=== PATIENT | female | born 1975 | race African-American/Black ===

== ENCOUNTER 2025-06-29 11:49 | Outpatient (AMB) | payer MEDICAID, SELFPAY ==
--- NOTE | 2025-06-29 12:05 | MHC.OFFVIS ---
Vital Signs 06/29/25 12:23 BP 138/92 H Position Sitting Pulse 74 Intake Visit Reasons: follow up Allergies No Known Allergies Allergy (Verified 06/29/25 12:09) Medication List - Last Reconciled 06/29/25 by Tabitha Ordonez CNP acetaminophen-codeine 300-30 mg 1 tab PO Q6H PRN amitriptyline 75 mg PO QPM atorvastatin 80 mg PO DAILY buspirone 30 mg PO BID cetirizine 10 mg PO DAILY clonidine HCl 0.3 mg PO TID PRN empagliflozin (Jardiance) 25 mg PO QAM eplerenone mg PO famotidine 20 mg PO BID gabapentin 300 mg PO ibuprofen 800 mg PO Q8H PRN insulin degludec (Tresiba FlexTouch U-200 insulin) 100 units subcut BEDTIME levetiracetam 1,000 mg PO BID 90 days levetiracetam 250 mg PO BID levothyroxine 75 mcg PO DAILY losartan 100 mg PO DAILY metoclopramide HCl 10 mg PO QID olanzapine 10 mg PO DAILY prazosin 10 mg PO BID rizatriptan 10 mg PO DAILY PRN tirzepatide (Mounjaro) mg subcut trazodone 150 - 300 mg PO BEDTIME PRN venlafaxine ER 75 mg PO QAM venlafaxine ER mg PO HPI Comments Details: 49-year-old RH woman with epilepsy vs non epileptic spells. She suffered from obesity, HTN, PTSD, with a diagnosis of pseudotumor cerebri s/p shunting procedure in 2000, who stated that she was having episodes when she would lose time a little bit. She could get frozen, and she could become unaware of things going on around her. She would urinate when this happened, like she would lose control of her body. Her EEGs have not revealed any epileptic tendency. She believed that treatment with Keppra helped her and she was not having these episodes as often as before. She did not have any spells for about 5 months, but started was having spells about 1x/week for the last 2 months. She ran out of levetiracetam for about 4 days a month or so ago, but denies any missed doses recently. Her last spell was 2 days ago. She went to get a drink when she saw white, and dropped drink, and then fell. Her mother heard her fall and found her twitching. It may have lasted about 2 minutes. No tongue bite. She was incontinent of urine and was tired after. She was also having more headaches the last few months. It was throbbing-type pain primarily to top of head, worse with light and noise. She was taking Tylenol 3-4x/day for last few months. [facility] Medical History (Updated 06/29/25 @ 12:26 by Tabitha Ordonez CNP) IIH (idiopathic intracranial hypertension) PTSD (post-traumatic stress disorder) Hypertension Review of Systems Const Denies chills, Denies daytime sleepiness, Reports difficulty sleeping, Denies fatigue, Denies fever(s), Denies frequent falls, Reports headache(s), Denies increased appetite, Denies poor appetite, Denies snoring, Denies weakness, Denies weight gain and Denies weight loss Eyes Denies loss of vision ENT Denies vertigo, Reports dizziness and Reports headache(s) Card Denies chest pain at rest, Denies chest pain with activity, Denies syncope, Denies leg edema and Denies palpitations Resp Denies snoring GI Denies constipation, Denies heartburn, Denies diarrhea and Denies nausea Denies urinary frequency, Denies urinary incontinence and Denies urinary urgency Musc Denies abnormal gait, Denies numbness and Denies tingling Skin/Breast Denies dry skin and Denies rash Neuro Denies abnormal gait, Denies vertigo, Reports dizziness, Denies syncope, Denies frequent falls, Reports headache(s), Denies lack of coordination, Denies loss of vision, Denies memory loss, Denies numbness, Denies restless legs, Denies seizure-like activity, Denies tingling, Denies paresthesias, Denies tremor(s) and Denies weakness Psych Denies anxiety, Denies depression, Denies auditory hallucinations, Denies memory loss, Denies visual hallucinations and Denies suicidal ideation Endo Denies fatigue and Denies palpitations Physical Exam Const Other: General Appearance:? normal, in no acute distress. Skin:? no rashes, no significant birthmarks. Heart:? S1, S2 normal, no murmurs. Lungs:? clear anteriorly and posteriorly. Extremities:? no edema. Psych:? alert, oriented, cognitive function intact, cooperative with exam. Neuro Other: Mental Status:?Normal attention, orientation, and flat affect.? Cranial Nerves:?Pupils are equal, round and reactive to light. External occular muscles are intact. Visual covarrubias are full. Face is symmetrical. Facial sensations are normal. Tongue is midline. Palate elevates symmetrically. Shoulder shrugging is normal. Hearing to bedside conversation is normal. Sensory Exam:?....? Coordination:?No ataxia,?no titubation.? Gait Exam: Within normal limits. Cerebellar Signs:?[id number] is okay. Extrapyramidal System:?No tremor, rigidity with normal facial expressions.? Pronator Drift:?Not present.? Involuntary Movements:?No tremors seen.? Speech:?Normal.? Results Reviewed Results Reviewed: EEG at off in Oct 2024: questionable abnormality of left hemisphere the most of the EEG was unremarkable EEG at off in Oct 2021: WNL CT brain WO at [facility] in Sep 2021: OK, s/p shunting Amb EEG [facility] in Oct 2020: OK Routine EEG at office in Sep 2020: WNL EEG at [facility] in Sep 2018: WNL MRI brain at [facility] in Oct 2017: s/p PROFESSOR OF ASTRONOMY shunt, a few non specific WM hyperintensities Assessment & Plan Assessment & Plan (1) Seizure disorder: Code(s): G40.909 - Epilepsy, unspecified, not intractable, without status epilepticus Category: Medical Plan: Continue levetiracetam 1000mg 1 tablet twice a day. Increase levetiracetam 500mg 1 tablet twice a day. She was educated on the importance of medication compliance and risk associated with missed doses, including seizures. (2) Migraine: Code(s): G43.909 - Migraine, unspecified, not intractable, without status migrainosus Category: Medical Qualifiers: Migraine type: unspecified Status migrainosus presence: without status migrainosus Intractability: not intractable Qualified Code(s): G43.909 - Migraine, unspecified, not intractable, without status migrainosus Plan: Continue rizatriptan 10mg 1 tablet as needed for migraine. (3) Medication overuse headache: Code(s): G44.40 - Drug-induced headache, not elsewhere classified, not intractable Category: Medical Plan: She was educated on this condition. She was advised to stop Tylenol (and other OTC analgesics) completely. Plan Meds tried: sumatriptan Medications: New levetiracetam 500 mg PO BID 180 tabs 1RF 90 days Coding Level of Care Code Est Pt Level 4 (41781) Diagnoses Seizure disorder G40.909 Migraine without status migrainosus, not intractable, unspecified migraine type G43.909 Migraine type: unspecified Status migrainosus presence: without status migrainosus Intractability: not intractable Medication overuse headache G44.40
[2025-06-29 12:23] VITALS: BP 138/92; PULSE 74
--- OUTSIDE RECORDS SUMMARY | 2025-06-29 14:31 | XMS_ITS | Encounter Summary ---
Author Organization [facility], Address [address] [place] [address] Phone Care Team Providers Care Correctional Guard Name Role Phone Lashawn Cloud MD Primary Care Provider + Reason for Visit * Reason Comments Med Refill Encounter Details Date Type Department Care Team (Late st Contact Info) Description 08/28/2020 Refill [facility] [address] [place] [id number] Navid Nolasco MD [address] [place] [address] [place] [address] Social History Tobacco Use Types Packs/Day Years Used Date Smoking Tobacco: Never Comments Unknown Sex and Gender Information Value Date Recorded Sex Assigned at Not on file Legal Sex Female 4:34 PM EST Gender Identity Not on file Sexual Orientation Not on file documented as of this encounter Plan of Treatment Upcoming Encounters Date Type Department Care Team (Late st Contact Info) Description 07/08/2025 9:10 AM EDT Office Visit [facility], [address] [place] [address] Isaias Randall MD [address] [place] [address] [place] [address] documented as of this encounter Visit Diagnoses Not on filedocumented in this encounter Care Teams Correctional Guard Relationship Specialty Start Date End Date Lashawn Cloud MD PCP - General 03/19/23 documented as of this encounter
--- OUTSIDE RECORDS SUMMARY | 2025-06-29 14:31 | XMS_ITS | Encounter Summary ---
Author Organization [facility] Address [address] [place] [address] Phone Care Team Providers Care Medicare Coordinator Name Role Phone Lashawn Cloud MD Primary Care Provider + Encounter Details Date Type Department Care Team (Late st Contact Info) Description 01/16/2025 Documentation Only [facility] [address] [place] [address] [place] [address] [place] [phone] Social History Tobacco Use Types Packs/Day Years Used Date Smoking Tobacco: Never Alcohol Use Standard Drinks/Week Comments No 0 (1 standard drink = 0.6 oz pur e alcohol) Comments Unknown Sex and Gender Information Value Date Recorded Sex Assigned at Not on file Legal Sex Female 4:34 PM EST Gender Identity Not on file Sexual Orientation Not on file documented as of this encounter Plan of Treatment Upcoming Encounters Date Type Department Care Team (Late st Contact Info) Description 07/08/2025 9:10 AM EDT Office Visit [facility] [address] [place] [address] Isaias Randall MD [address] [place] [address] documented as of this encounter Visit Diagnoses Not on filedocumented in this encounter Care Teams Medicare Coordinator Relationship Specialty Start Date End Date Lashawn Cloud MD PCP - General 03/19/23 documented as of this encounter
--- OUTSIDE RECORDS SUMMARY | 2025-06-29 14:31 | XMS_ITS | Clinical Summary ---
Author Organization 175 [facility] Address [address] [place] [address] Phone Care Team Providers Care Sleeve Tailor Name Role Phone Lashawn Montesinos MD Primary Care Prov ider Allergies Active Allergy Reactions Criticality Noted Date Comments Amlodipine Besylate Cough Medium 07/22/2013 Lisinopril Cough Medium 06/05/2013 Coughing/bleeding Amlodipine Cough Medium 11/04/2024 Other Other Medium 08/20/2024 INSPRA 07/22/2013 21 - OTHER Hematuria - brand name only that causes this, generic is ok Spironolactone Other Medium 03/11/2022 Medications blood-glucose meter kit 1 Device by Does not apply route 2 times daily. Use to test blood sugar BID dx e11.9. 024 Active insulin syringe-needle U-100 0.3 mL 30 gauge x 10/09 syringe 023 Active nut.tx.gluc intol,lf,soy/fi stevie (BOOST GLUCOSE CONTROL ORAL) Take 1 Bottle by mouth daily for 30 days. 024 Active lancets 33 gauge misc 023 Active amitriptyline (ELAVIL) 150 mg tablet Take 0.5 Tablets by mouth. 020 Active ammonium lactate (LAC-HYDRIN) 12 % lotion APPLY TO SOLES OF FEET DAILY. AT NIGHT WEAR SOCKS TO BED 024 Active aspirin 81 mg EC tablet Take 81 mg by mouth daily. Active cloNIDine (CATAPRES) 0.3 mg tablet Take 1 tablet (0.3 mg total) by mouth 3 (three) times a day. Active fluoride, sodium, (Denta 5000 Plus) 1.1 % cream USE 2-3X/DAILY, SPIT OUT EXCESS DO NOT RINSE WITH WATER. NO EATING OR DRINKING FOR 45 MIN AFTER. Active fluticasone propionate (FLONASE) 50 mcg/actuation nasal spray [place] 1 puff into nostrils twice a day 2024 Active levETIRAcetam (KEPPRA) 250 mg tablet Take 1 tablet (250 mg total) by mouth 2 (two) times a day. Take with the 1,000 MG for a daily total of 1025 MG daily. Active levETIRAcetam (KEPPRA) 1,000 mg tablet Take 1 tablet (1,000 mg total) by mouth 2 (two) times a day. Active OLANZapine (ZyPREXA) 10 mg tablet Take 3 tablets (30 mg total) by mouth at bedtime. Active polyethylene glycol (MIRALAX) 17 gram packet Active prazosin (MINIPRESS) 5 mg capsule Take 2 capsules (10 mg total) by mouth 2 (two) times a day. Active traZODone (DESYREL) 150 mg tablet Take 150 mg by mouth at bedtime. Active venlafaxine XR (EFFEXOR-XR) 150 mg 24 hr capsule TAKE 1 CAPSULE BY MOUTH ONCE A DAY TAKE WITH 75 MG CAPSULE FOR TOTAL DOSE = 225 MG. Active venlafaxine XR (EFFEXOR-XR) 75 mg 24 hr capsule TAKE 1 CAPSULE BY MOUTH EVERY MORNING TAKE WITH 150 MG CAPSULE FOR TOTAL DOSE = 225 MG. Active ziprasidone (GEODON) 80 mg capsule Take 80 mg by mouth 2 times daily (with meals). Prescribed by Dr. Isaias Sheridan Active zolpidem (AMBIEN) 5 mg tablet Take by mouth at bedtime as needed. Active albuterol HFA (Ventolin HFA) 90 mcg/actuation inhaler Inhale 2 Puffs into the lungs every 4 hours as needed for Cough or Wheezing. Active atorvastatin (LIPITOR) 80 mg tablet Take 1 tablet (80 mg total) by mouth 1 (one) time each day. 90 each 3 025 2025 Active eplerenone (INSPRA) 50 mg tablet Take 2 tablets (100 mg total) by mouth 2 (two) times a day. Active benztropine (COGENTIN) 0.5 mg tablet Take 1 tablet (0.5 mg total) by mouth 2 (two) times a day. Active rizatriptan (MAXALT) 10 mg tablet Take 1 tablet (10 mg total) by mouth if needed. Active busPIRone (BUSPAR) 5 mg tablet Take 1 tablet (5 mg total) by mouth 3 (three) times a day. Active Lubricant Eye Drops 0.5 % ophthalmic solution Administer 1 drop into both eyes 2 (two) times a day. Active KLOR-CON 20 mEq CR tablet Take 1 tablet (20 mEq total) by mouth 1 (one) time each day. Active potassium citrate (UROCIT-K) 10 mEq (1,080 mg) CR tabletIndicatio ns:Hyperaldoste ronism, unspecified (CMS/HCC V24) TAKE 2 TABLETS BY MOUTH TWICE A DAY 360 tablet Active bisacodyL (DULCOLAX) 5 mg EC tablet Take 2 tablets by mouth right before beginning bowel prep. See instructions provided by the office 2 tablet Active glucose blood test strip Use to test blood sugar 3 times daily. 300 each 3 Active insulin aspart (NovoLOG Flexpen U-100 Insulin) 100 unit/mL (3 mL) injection pen Inject 30 Units into the skin 3 times daily (before meals). Please dispense 90 day supply 45 mL 11 Active blood sugar diagnostic (FreeStyle Lite Strips) test strip Use to check BS 3 times a day 100 each 12 025 2025 Active glucagon (Gvoke HypoPen 2-Pack) 0.5 mg/0.1 mL auto-injector Inject 0.5 mg under the skin if needed (low blood sugar). 0.5 each 5 Active losartan (COZAAR) 100 mg tablet TAKE 1 TABLET BY MOUTH 1 TIME EACH DAY. 90 tablet 1 Active insulin degludec (Tresiba FlexTouch U-200) 200 unit/mL (3 mL) CONCENTRATED injection pen INJECT 100 UNITS INTO THE SKIN AT BEDTIME. PLEASE DISPENSE 90 DAY SUPPLY 45 Pen 1 Active folic acid (FOLVITE) 1 mg tablet TAKE 1 TABLET BY MOUTH EVERY DAY 90 tablet 1 Active dilTIAZem CD (CARDIZEM CD) 360 mg 24 hr capsule Take 1 capsule (360 mg total) by mouth 1 (one) time each day. 30 each 025 2025 Active empagliflozin (Jardiance) 25 mg tablet Take 1 tablet (25 mg total) by mouth 1 (one) time each day in the morning. 90 tablet Active labetaloL (NORMODYNE) 200 mg tablet Take 2 tablets (400 mg total) by mouth 2 (two) times a day. 360 each 025 2025 Active levothyroxine (SYNTHROID, LEVOTHROID) 75 mcg tabletIndicatio ns:Hypothyroidi sm, unspecified type Take 1 tablet (75 mcg total) by mouth 1 (one) time each day. 90 each Active gabapentin (NEURONTIN) 300 mg capsule Take 1 capsule (300 mg total) by mouth 2 (two) times a day. 180 each 025 2024 Active cyclobenzaprine (FLEXERIL) 5 mg tabletIndicatio ns:Acute right-sided low back pain without sciatica Take 1 tablet (5 mg total) by mouth 3 (three) times a day if needed for muscle spasms for up to 20 doses. 20 tablet 025 Active blood-glucose sensor (Dexcom G7 Sensor) deviceIndicatio ns:Type 2 diabetes mellitus without complication, without long-term current use of insulin ([facility] V24, [facility] V28) Change sensor every 10 days 3 each 11 Active BD Ultra-Fine Short Pen Needle 31 gauge x 5/16 needle USE DIRECTED FOUR TIMES DAILY 400 each 025 Active cetirizine (ZyrTEC) 10 mg tablet TAKE 1 TABLET BY MOUTH EVERY DAY 90 tablet 1 Active tirzepatide (Mounjaro) 10 mg/0.5 mL injection INJECT 1 PEN UNDER THE SKIN EVERY 7 (SEVEN) DAYS FOR 28 DAYS. 2 mL 2 Active linaCLOtide (Linzess) 290 mcg capsule Take 1 capsule (290 mcg total) by mouth 1 (one) time each day before breakfast. 90 each 3 025 2025 Active pantoprazole (PROTONIX) 40 mg EC tablet Take 1 tablet (40 mg total) by mouth 1 (one) time each day before breakfast. Do not crush, chew, or split. 90 each 3 025 2025 Active famotidine (PEPCID) 20 mg tablet Take 1 tablet (20 mg total) by mouth 2 (two) times a day. 180 each 3 025 2025 Active metoclopramide (REGLAN) 10 mg tablet Take 1 tablet (10 mg total) by mouth 4 (four) times a day (before meals and nightly). 120 each 1 025 2024 Active linaCLOtide (Linzess) 290 mcg capsule Take 1 Capsule by mouth daily. Take in a.m. 024 2024 Discontinued(R eorder) sucralfate (CARAFATE) 1 gram tablet Take 1 Tablet by mouth 4 times daily. 024 2024 Discontinued famotidine (PEPCID) 20 mg tablet Take 1 tablet (20 mg total) by mouth 2 (two) times a day. 180 tablet 1 024 2024 Discontinued(R eorder) cetirizine (ZyrTEC) 10 mg tablet TAKE 1 TABLET BY MOUTH EVERY DAY 90 tablet 1 025 2024 Discontinued metoclopramide (REGLAN) 10 mg tablet Take 1 tablet (10 mg total) by mouth 4 (four) times a day (before meals and nightly). 120 each 3 025 2024 Discontinued(R eorder) pantoprazole (PROTONIX) 40 mg EC tablet TAKE 1 TABLET BY MOUTH EVERY DAY BEFORE BREAKFAST DO NOT CRUSH CHEW OR SPLIT 90 tablet 1 025 2024 Discontinued(R eorder) tirzepatide (Mounjaro) 10 mg/0.5 mL injection Inject 0.5 mL (10 mg total) under the skin every 7 (seven) days for 28 days. 2 mL 025 2024 Discontinued Active Problems Problem Noted Date Diagnosed Date Adrenal hyperplasia ([facility] V24) 08/20/2024 Constipation 08/20/2024 Esophageal dysmotility 08/20/2024 Hiatal hernia 08/20/2024 Primary aldosteronism ([facility] V24) 08/20/2024 Overview (08/20/2024): betsy goodman Hypothyroid 08/20/2024 Assessment & Plan (03/30/2025 7:58 PM EDT): Assessment & Plan (01/22/2025 5:16 PM EDT): Patient currently on levothyroxine 75 mcg daily. Stable TSH. Continue same dose Assessment & Plan (09/24/2024 8:04 AM EST): Patient currently on levothyroxine 75 mcg daily. Stable TSH. Continue same dose Orders: Ambulatory referral to Endocrinology; Future Lipid panel with reflex to direct LDL; Future Hemoglobin A1c; Future LENNIE (iron deficiency anemia) 08/20/2024 Class 3 severe obesity due t o excess calories with body mass index (BMI) of 50.0 to 59.9 in adult ([facility] V24, [facility] V28) 08/20/2024 Uterine leiomyoma 03/05/2024 Abnormal EKG 05/09/2022 Acute respiratory failure wi th hypoxia ([facility] V24, [facility] V28) 05/09/2022 Hypomagnesemia 05/09/2022 Palpitations 05/09/2022 SBO (small bowel obstruction) ([facility] V24, [facility] V28) 05/09/2022 Tremor 05/09/2022 Urinary incontinence 02/20/2022 Abnormal breast biopsy 12/02/2021 Overview (08/20/2024): Intraductal papilloma with florid epithelial hyperplasia, surgical consultation to evaluate for excision advised. [facility] center nurse navigator notified to facilitate. Seizure disorder ([facility] V24, [facility] V28) 02/2022 Type 2 diabetes mellitus ([facility] V24, [facility] V 28) 09/25/2018 Assessment & Plan (03/30/2025 7:58 PM EDT): Assessment & Plan (01/22/2025 5:16 PM EDT): Good control of diabetes. A1c 6.2. Patient will continue with yearly Podiatric and Ophthomologic evaluations.Will continue Angiotensin Converting Enzyme Inhibitor for renal protection. Continue Jardiance, insulin and Ozempic prescribed by weight management. We will check a hemoglobin A1c, before next visit. Patient will follow up in 6 months Orders: Hemoglobin A1c; Future Comprehensive metabolic panel; Future Lipid panel with reflex to direct LDL; Future Assessment & Plan (09/24/2024 8:04 AM EST): Good control of diabetes. Patient will continue with yearly Podiatric and Ophthomologic evaluations.Will continue Angiotensin Converting Enzyme Inhibitor for renal protection. Continue Jardiance, insulin and Ozempic prescribed by weight management. We will check a hemoglobin A1c, before next visit. Patient will follow up in 4 months Orders: Ambulatory referral to Endocrinology; Future Lipid panel with reflex to direct LDL; Future Hemoglobin A1c; Future Depression with anxiety 09/27/2017 PTSD (post-traumatic stress disorder) 09/27/2017 Left-sided weakness 08/24/2017 Overview (08/20/2024): Admitted [facility] 08/11/2017, occlusion left middle cerebral artery, symptoms felt to be possibly functional Gout 07/22/2013 Hyperaldosteronism ([facility] V24) 07/22/2013 Migraine headache 07/22/2013 Multinodular goiter 07/22/2013 PCOS (polycystic ovarian syndrome) 07/22/2013 Overview (08/20/2024): Irregular periods Pseudotumor cerebri 07/22/2013 Overview (08/20/2024): Shunt 2001 HTN (hypertension) 06/05/2013 Overview (08/20/2024): Last Assessment & Plan: Patient with history of hypertension. She also has history of primary aldosteronism. She follows closely with renal, Dr. Goodman. They have been managing her hypertension for quite some time. She is on an extensive regimen including diltiazem 360 mg orally daily, metoprolol succinate 100 mg orally twice daily, prazosin 5 mg orally twice daily, eplerenone 100 mg orally twice daily, clonidine 0.3 mg orally twice daily. Her blood pressure is noted to be 160/98 today however she just took her medication 30 to 45 minutes ago. At this time, she will continue on her current medication regimen and continue to follow-up with nephrology. Assessment & Plan (03/30/2025 7:58 PM EDT): Assessment & Plan (01/22/2025 5:16 PM EDT): The patient's antihypertensive regimen is based on their underlying medical issues. At the time of this visit, the blood pressure is well controlled. Will continue losartan, labetalol, prazosin, clonidine as recommended by cardiology. Her dose of labetalol was increased to 400 mg twice daily. The patient is instructed to follow a low sodium diet and to follow up in 6 months Assessment & Plan (09/24/2024 8:04 AM EST): The patient's antihypertensive regimen is based on their underlying medical issues. At the time of this visit, the blood pressure is fairly well controlled. Will continue losartan, labetalol, prazosin, clonidine as recommended by cardiology. The patient is instructed to follow a low sodium diet and to follow up in 4 months Orders: Ambulatory referral to Endocrinology; Future Lipid panel with reflex to direct LDL; Future Hemoglobin A1c; Future Hypercholesteremia 06/05/2013 Assessment & Plan (03/30/2025 7:58 PM EDT): Assessment & Plan (01/22/2025 5:16 PM EDT): Given the patients cardiac risk profile, the patient requires an LDL cholesterol of less than 70. I have instructed the patient on the principles of a low cholesterol diet and the importance of regular exercise. We will continue atorvastatin. Assessment & Plan (09/26/2024 9:19 AM EST): Given the patients cardiac risk profile, the patient requires an LDL cholesterol of less than 70. I have instructed the patient on the principles of a low cholesterol diet and the importance of regular exercise. We will continue atorvastatin and recheck levels before her next visit. If still elevated, will adjust the regimen. Orders: Ambulatory referral to Endocrinology; Future Lipid panel with reflex to direct LDL; Future Hemoglobin A1c; Future Encounters Date Type Department Care Team Description 06/18/2025 11:00 AM EDT Office Visit Gastroenterology - [place] 175 [facility] 175 [facility] [address] [place] [address] Jaycee Bryan NP Chronic constipation (Primary Dx); Chronic GERD without esophagitis; Delayed gastric emptying 06/16/2025 Telephone Adult Medicine [address] [phone] Chery Chavez MA 06/10/2025 1:06 PM EDT - 06/10/2025 3:12 PM EDT Emergency [facility] Emergency [address] [place] [phone] Fahad Ward MD Weakness (Primary Dx) Discharge Disposition: Home or Self Care 06/10/2025 Telephone Adult Medicine [address] [phone] Chery Chavez [place] 05/07/2025 Telephone Adult Medicine [address] [phone] Lashawn Montesinos MD 04/30/2025 Telephone Endocrinology - [address] [phone] Vahid Kemp MD 04/30/2025 Telephone Bariatric Surgery - [place] [address] [facility] [address] [place] [phone] Brody Mart MD 04/29/2025 11:00 AM EDT Office Visit [address] [phone] Vahid Kemp MD Type 2 diabetes mellitus without complication, without long-term current use of insulin ([facility] V24, [facility] V28) (Primary Dx) 04/07/2025 Telephone Adult Medicine [address] [phone] Chery Chavez MA 04/07/2025 Telephone Adult Medicine [address] [phone] Chery Chavez MA 03/30/2025 9:36 AM EDT - 03/30/2025 11:59 PM EDT Hospital Encounter XRAY [address] [phone] Acute right-sided low back pain without sciatica Discharge Disposition: Home or Self Care 03/30/2025 9:00 AM EDT Office Visit Adult Medicine [address] [phone] Lashawn Montesinos MD Type 2 diabetes mellitus without complication, without long-term current use of insulin ([facility] V24, [facility] V28) (Primary Dx); Primary hypertension; Hypercholesteremia; Hypothyroidism, unspecified type; Acute right-sided low back pain without sciatica; Left hemiparesis (CMS/HCC V24, CMS/HCC V28) from Last 3 Months Immunizations Name Administration Dates Next Due Pneumococcal conjugate 20 va lent (Prevnar 20, PCV 20) 2mo and older 10/12/2022 Pneumococcal polysaccharide 23 valent (Pneumovax 23) 2yo and older 08/13/2017 Tdap Tetanus diptheria acell ular pertussis (Boostrix; Adacel) 7yo and older 06/11/2019 Surgical History Surgery Date Site/Laterality Comments OTHER SURGICAL HISTORY PROCEDURE: ---- OTHER ----; COMMENT: [employer] shunt, 2000, 2001 OTHER SURGICAL HISTORY PROCEDURE: ---- OTHER ----; COMMENT: l ankle surgery MULTIPLE TOOTH EXTRACTIONS PROCEDURE: HISTORICAL DENTAL EXTRACTION OTHER SURGICAL HISTORY PROCEDURE: HISTORICAL EAR SURGERY; COMMENT: tubes HYSTERECTOMY PROCEDURE: CA VAGINAL HYSTERECTOMY UTERUS 250 GM/<; COMMENT: still has ovaries Medical History Medical History Date Comments HTN (hypertension) 06/05/2013 DX:HTN (hyper tension) Hypercholesteremia 06/05/2013 DX:Hyperchole steremia LENNIE (iron deficiency anemia) DX: LENNIE (iron deficiency anemia) Adrenal hyperplasia ([facility] V24) DX:Adrenal hyperplasia (HCC) Primary aldosteronism ([facility] V24) DX:Primary aldosteronism (HCC); COMMENT: betsy goodman Hypothyroid DX:Hypothyroid Esophageal dysmotility DX:Esopha geal dysmotility Hiatal hernia DX:Hiatal hernia Constipation DX:Constipation Anxiety state DX:Anxiety state Depressive disorder DX:Depressiv e disorder Diabetes mellitus type 2, co ntrolled, with complications ([facility] V24, [facility] V28) DX:Diabetes mellitus type 2, controlled, with complications ([facility]) GERD (gastroesophageal reflux disease) DX:GERD (gastroesophageal reflux disease) Gastroparesis DX:Gastroparesis Esophageal dysmotility DX:Esopha geal dysmotility Gastroparesis DX:Gastroparesis Occult blood in stools DX:Occult blood in stools Encounter for diagnostic col onoscopy due to change in bowel habits DX:Encounter for diagnostic colonoscopy due to change in bowel habits CVA (cerebral vascular accid ent) ([facility] V24, [facility] V28) Seizures ([facility] V24, [facility] V28) Family History Medical History Relation Name Comments Prostate cancer Father Diabetes Mother Hyperlipidemia Mother thyroidectomy Hypertension Mother Breast cancer Other mat aunt dx 50s 50s Relation Name Status Comments Father Alive Mother Alive Other mat aunt dx 50s Alive Social History Tobacco Use Types Packs/Day Years Used Date Smoking Tobacco: Never Smokeless Tobacco: Never Tobacco Cessation:Counseling Given: Not Answered Alcohol Use Standard Drinks/Week Comments Not Currently 0 (1 standard drink = 0.6 oz pur e alcohol) Housing Instability Answer Date Recorde d Are you worried that in the next 2 months you may not have stable housing? No 01/22/2025 Food Access & Nutrition Answer Date Rec orded Do you have access to a vari ety of food including fruits and vegetables? Yes 01/22/2025 Health Literacy Answer Date Recorded How often do you need to hav e someone help you when you read instructions, pamphlets, or other written material from your doctor or pharmacy? Never 01/22/2025 Caregiver: How often do you need to have someone help you when you read instructions, pamphlets, or other written material from your doctor or pharmacy? Not on file 01/22/2025 Financial Risk Answer Date Recorded How hard is it for you to pa y for the very basics like food, housing, medical care, and air conditioning / heating? Not very hard 01/22/2025 Transportation Answer Date Recorded Has the lack of transportati on kept you from meetings, work, or from getting things needed for daily living? No Has the lack of transportati on kept you from medical appointments or from getting medications? No 01/22/2025 Social Isolation Answer Date Recorded How often do you feel lonely or isolated from th ose around you? Never 01/22/2025 Food Risk Answer Date Recorded Within the past 12 months we worried whether our food would run out before we got money to buy more. Never true 01/22/2025 Within the past 12 months th e food we bought just didn't last and we didn't have money to get more. Never true 01/22/2025 Dependent Care Answer Date Recorded Do you need help finding or paying for care for your loved ones. For example, child neurologist or elderly care for an older adult? No 01/22/2025 Education Answer Date Recorded Do you think completing more education or training, like finishing a GED, going to college, or learning a trade, would be helpful for you? No 01/22/2025 Employment and Income Answer Date Recor ded During the last four weeks, have you been actively looking for work? No 01/22/2025 Living Situation Answer Date Recorded What is your living situation? 0 01/22/2025 Interpersonal Safety Answer Date Record ed Physical Abuse 11/17/2024 Verbal Abuse 11/17/2024 Comments No Sex and Gender Information Value Date Recorded Sex Assigned at Female 11/11/2024 9:32 AM EST Legal Sex Female 4:00 PM EST Gender Identity Female 11/11/2024 9:32 AM EST Sexual Orientation Straight 11/11/2024 9: 32 AM EST Obstetrics History Para Term AB IAB SAB Ectopic Multiple Livin g Live Births 1 Last Filed Vital Signs Vital Sign Reading Time Taken Comments Blood Pressure 126/90 06/18/2025 10:37 AM EDT Pulse 83 06/18/2025 10:37 AM EDT Temperature 36.4 C (97.5 F) 06/10/2025 11:50 AM EDT Respiratory Rate 16 06/10/2025 2:00 PM EDT Oxygen Saturation 98% 06/18/2025 10:37 AM EDT Inhaled Oxygen Concentration - - Weight 132 kg (291 lb) 06/18/2025 10:37 AM EDT Height 160 cm (5' 3 ) 06/18/2025 10:37 AM EDT Body Mass Index 51.55 06/18/2025 10:37 AM EDT Plan of Treatment Upcoming Encounters Date Type Department Care Team (Late st Contact Info) Description 07/01/2025 10:45 AM EDT Office Visit Orthopedic Surgery [facility] [address] [phone] Zach Tarango, SHIRA [address] [address] 07/01/2025 2:00 PM EDT [facility]ointment [facility] [address] [phone] 07/02/2025 11:15 AM EDT Office Visit Endocrinology - [address] [phone] Vahid Kemp MD [address] [place] [address] 07/07/2025 1:00 PM EDT Office Visit Bariatric Surgery - [place] [address] [phone] Brody Mart MD [address] [place] [phone] 07/30/2025 11:30 AM EDT Office Visit Adult Medicine [facility] [address] [place], [place] [phone] Kina Peter PA [address] [place], [place] 06/17/2026 10:00 AM EDT Office Visit Gastroenterology - [place] [address] [place] [phone] Jaycee Bryan NP 175 [facility] [place] [address] [place] [address] Health Maintenance Due Date Last Done Comments Diabetes: Annual Retina Eye Exam 1987 Hepatitis B Vaccines (1 of 3 - 19+ 3-dose series) 1996 Medicare Annual Wellness Visit 12/12/2023 12/11/2022 Diabetes: Annual Foot Exam 03/05/2025 03/05/2024 Diabetes: Blood Sugar Control Test (HGBA1C) 04/06/2025 10/07/2024, 06/16/2024, 06/16/2024, Additional history exists COVID-19 Vaccine ( season) 2025 Influenza Vaccine (#1) 2025 Social Influencers of Health Screening 01/22/2026 01/22/2025 Diabetes: Annual Urine Albumin-Creatinine Ratio (uACR) 03/12/2026 03/12/2025, 06/16/2024 Diabetes: Annual GFR (Glomerular Filtration Rate) 06/10/2026 06/10/2025, 01/14/2025, 06/16/2024, Additional history exists Hypertension/CHF/CAD Annual BMP Blood Test 06/10/2026 06/10/2025, 01/14/2025, 06/16/2024, Additional history exists Breast Cancer Screening 12/23/2026 12/24/19 25, 06/02/2024, 09/16/2020, Additional history exists DTaP,Tdap,and Td Vaccines (2 - Td or Tdap) 06/11/2029 06/11/2019 Cholesterol Screening (Lipid Panel) 10/07/2029 10/07/2024, 06/16/2024, 06/16/2024 Colorectal Cancer Screening: Colonoscopy 11/17/2034 11/17/2024, 11/12/2024 RSV Immunization Adult Patients (1 - 1-dose 75+ series) 2052 HIV Screening Completed 11/07/2019 Hepatitis C Screening Completed 11/07/2019 Pneumococcal Vaccine: Pediatrics (0 to 5 Years) and At-Risk Patients (6 to 49 Years) Completed 10/12/2022, 08/13/2017 Depression Screening Completed 02/11/2025, 03/05/20 24 HIB Vaccines Aged Out No longer eligi ble based on patient's age to complete this topic HPV Vaccines Aged Out No longer eligi ble based on patient's age to complete this topic Hepatitis A Vaccines Aged Out No long er eligible based on patient's age to complete this topic IPV Vaccines Aged Out No longer eligi ble based on patient's age to complete this topic MMR Vaccines Aged Out No longer eligi ble based on patient's age to complete this topic Meningococcal ACWY Vaccine Aged Out N o longer eligible based on patient's age to complete this topic Meningococcal B Vaccine Aged Out No l onger eligible based on patient's age to complete this topic RSV Immunization Patients Under 20 months Aged Out No longer eligible based on patient's age to complete this topic Varicella Vaccines Aged Out No longer eligible based on patient's age to complete this topic Procedures Procedure Name Priority Date/Time Associated Diagnosis Comments CT HEAD WO CONTRAST STAT 06/10/2025 1 :57 PM EDT CBC WITH AUTO DIFFERENTIAL STAT 06/10/2025 1:31 PM EDT COMPREHENSIVE METABOLIC PANEL STAT 06/10/2025 1:31 PM EDT CBC AND DIFFERENTIAL STAT 06/10/2025 1:31 PM EDT XR LUMBAR SPINE 4+ VIEWS Routine 03/30/2025 9:51 AM EDT Acute right-sided low back pain without sciatica MICROALBUMIN CREATININE URINE RATIO Routine 03/12/2025 3:24 PM EDT Type 2 diabetes mellitus without complication, without long-term current use of insulin (CMS/HCC V24, CMS/HCC V28) MG MAMMO DIGITAL DIAGNOSTIC W GARY LEFT Routine 12/23/2024 11:41 AM EDT Screening mammogram for breast cancer COLONOSCOPY Routine 11/17/2024 4:06 PM EST Blood in stool HEMOGLOBIN A1C Routine 10/07/2024 12:26 PM EST Type 2 diabetes mellitus without complication, without long-term current use of insulin (CMS/HCC V24, CMS/HCC V28) Primary hypertension Hypercholesteremia Hypothyroidism, unspecified type LIPID PANEL WITH REFLEX TO DIRECT LDL Routine 10/07/2024 12:26 PM EST Type 2 diabetes mellitus without complication, without long-term current use of insulin (CMS/HCC V24, CMS/HCC V28) Primary hypertension Hypercholesteremia Hypothyroidism, unspecified type DEPRESSION SCREENING Routine 03/05/2024 DIABETES FOOT EXAM Routine 03/05/2024 HEPATITIS C SCREENING Routine 11/07/2019 HIV SCREENING Routine 11/07/2019 from Last 3 Months or Most Recently Relevant to Health Maintenance Results * CT Head wo Contrast (06/10/2025 1:57 PM EDT) Anatomical Region Laterality Modality Head and Neck Computed Tomogra phy 06/10/2025 2:10 PM EDT Impressions 06/10/2025 2:11 PM EDT NO ACUTE INTRACRANIAL ABNORMALITY. -------- FINAL REPORT -------- Dictated By: Sirisha Kruse Dictated Date: 06/10/2025 14:10 ET Assigned Physician: Sirisha Kruse Reviewed and Electronically Signed By: Sirisha Kruse Signed Date: 06/10/2025 14:11 ET Workstation ID: [id number] Transcribed By: Self Edit Transcribed Date: 06/10/2025 14:10 ET Narrative 06/10/2025 2:11 PM EDT PROCEDURE: HEAD CT INDICATION: left sided weakness x 1 month TECHNIQUE: CT of the head without intravenous contrast. Multiplanar reformats. The examination was performed utilizing dose reduction techniques. Total DLP 809 COMPARISON: No priors available. FINDINGS: No acute territorial infarct, mass effect, or intracranial hemorrhage. No significant white matter disease Right frontal approach ventriculostomy shunt catheter terminating in the left lateral ventricle. No hydrocephalus. Trace thickening involving ethmoid air cells and left sphenoid sinus. Mastoid air cells are clear. No calvarial fracture. Procedure Note Sirisha Kruse MD - 06/10/2025 PROCEDURE: HEAD CT INDICATION: left sided weakness x 1 month TECHNIQUE: CT of the head without intravenous contrast. Multiplanarreformats. The examination was performed utilizing dose reductiontechniques. Total DLP 809 COMPARISON: No priors available. FINDINGS: No acute territorial infarct, mass effect, or intracranial hemorrhage. No significant white matter disease Right frontal approach ventriculostomy shunt catheter terminating in theleft lateral ventricle. No hydrocephalus. Trace thickening involving ethmoid air cells and left sphenoid sinus.Mastoid air cells are clear. No calvarial fracture. IMPRESSION: NO ACUTE INTRACRANIAL ABNORMALITY. -------- FINAL REPORT -------- Dictated By: Sirisha Kruse Dictated Date: 06/10/2025 14:10 ET Assigned Physician: Sirisha Kruse Reviewed and Electronically Signed By: Sirisha Kruse Signed Date: 06/10/2025 14:11 ET Workstation ID: [id number] Transcribed By: Self Edit Transcribed Date: 06/10/2025 14:10 ET Fahad Ward MD IM CT PROCEDURES Final Result * (ABNORMAL) CBC auto differential (06/10/2025 1:31 PM EDT) WBC 8.4 4.8 - 10.8 K/mcL LAB HEMETOLOGY METHOD 06/10/2025 2:04 PM [facility] RBC 5.00(H) 3.80 - 4.80 M/mcL LAB HEMETOLOGY METHOD 06/10/2025 2:04 PM [facility] Hemoglobin 13.5 11.5 - 16.0 g/dL LAB HEMETOLOGY METHOD 06/10/2025 2:04 PM [facility] Hematocrit 41.9 35.0 - 47.0 % LAB HEMETOLOGY METHOD 06/10/2025 2:04 PM [facility] MCV 84.0 79.0 - 98.0 FL LAB HEMETOLOGY METHOD 06/10/2025 2:04 PM [facility] MCH 27.1 27.0 - 32.0 pcg LAB HEMETOLOGY METHOD 06/10/2025 2:04 PM [facility] MCHC 32.2 32.0 - 37.0 g/dL LAB HEMETOLOGY METHOD 06/10/2025 2:04 PM [facility] RDW 13.4 11.0 - 15.0 % LAB HEMETOLOGY METHOD 06/10/2025 2:04 PM [facility] Platelets 285 130 - 400 K/mcL LAB HEMETOLOGY METHOD 06/10/2025 2:04 PM [facility] MPV 10.2 7.0 - 11.0 FL LAB HEMETOLOGY METHOD 06/10/2025 2:04 PM [facility] NRBC 0.0 <1.0 % LAB HEMETOLOGY METHOD 06/10/2025 2:04 PM [facility] NRBC Absolute 0.00 <0.10 K/mcL LAB HEMETOLOGY METHOD 06/10/2025 2:04 PM [facility] Neutrophils Relative 70.8 % LAB HEMETOLOGY METHOD 06/10/2025 2:04 PM [facility] Lymphocytes Relative 16.3 % LAB HEMETOLOGY METHOD 06/10/2025 2:04 PM [facility] Monocytes Relative 5.4 % LAB HEMETOLOGY METHOD 06/10/2025 2:04 PM [facility] Eosinophils Relative 6.5 % LAB HEMETOLOGY METHOD 06/10/2025 2:04 PM [facility] Basophils Relative 0.5 % LAB HEMETOLOGY METHOD 06/10/2025 2:04 PM [facility] Immature Granulocytes Relative 0.5 % LAB HEMETOLOGY METHOD 06/10/2025 2:04 PM [facility] Neutrophils Absolute 5.93 1.50 - 7.00 K/mcL LAB HEMETOLOGY METHOD 06/10/2025 2:04 PM [facility] Lymphocytes Absolute 1.36 1.00 - 5.00 K/mcL LAB HEMETOLOGY METHOD 06/10/2025 2:04 PM [facility] Monocytes Absolute 0.45 0.20 - 1.00 K/mcL LAB HEMETOLOGY METHOD 06/10/2025 2:04 PM [facility] Eosinophils Absolute 0.54(H) 0.00 - 0.50 K/mcL LAB HEMETOLOGY METHOD 06/10/2025 2:04 PM [facility] Basophils Absolute 0.04 0.00 - 0.20 K/mcL LAB HEMETOLOGY METHOD 06/10/2025 2:04 PM [facility] Immature Granulocytes Absolute 0.04(H) 0.00 - 0.03 K/mcL LAB HEMETOLOGY METHOD 06/10/2025 2:04 PM [facility] Blood Venous blood specimen / Unknown Venipuncture / Unknown 06/10/2025 1:31 PM EDT 06/10/2025 1:54 PM EDT us Fahad Ward MD LAB BLOOD ORDERABLES Final Resul t [facility] [address] [place] [address], [place] [phone] * (ABNORMAL) Comprehensive metabolic panel (06/10/2025 1:31 PM EDT) Sodium 142 133 - 145 mmol/L LAB CHEMISTRY METHOD 06/10/2025 2:50 PM EDT [facility] Potassium 3.4(L) 3.5 - 5.5 mmol/L LAB CHEMISTRY METHOD 06/10/2025 2:50 PM EDT [facility] Chloride 107 96 - 110 mmol/L LAB CHEMISTRY METHOD 06/10/2025 2:50 PM T [facility] CO2 29 21 - 32 mmol/L LAB CHEMISTRY METHOD 06/10/2025 2:50 PM T [facility] Anion Gap 6 3 - 11 LAB CHEMISTRY METHOD 06/10/2025 2:50 PM [facility] Glucose 172(H) 70 - 100 mg/dL LAB CHEMISTRY METHOD 06/10/2025 2:50 PM [facility] BUN 15 5 - 25 mg/dL LAB CHEMISTRY METHOD 06/10/2025 2:50 PM [facility] Creatinine 1.39(H) 0.50 - 1.10 mg/dL LAB CHEMISTRY METHOD 06/10/2025 2:50 PM [facility] eGFR 47(L) >=60 mL/min/1. 73m2 LAB CHEMISTRY METHOD 06/10/2025 2:50 PM T [facility] Comment:Calculation based on the Chronic Kidney Disease Epidemiology Collaboration (CKD-EPI) equation refit without adjustment for race. BUN/Creatinine Ratio 10.8 LAB CHEMISTRY METHOD 06/10/2025 2:50 PM EDT [facility] Calcium 9.9 8.5 - 10.5 mg/dL LAB CHEMISTRY METHOD 06/10/2025 2:50 PM EDT [facility] AST (SGOT) 17 10 - 42 unit/L LAB CHEMISTRY METHOD 06/10/2025 2:50 PM EDT [facility] ALT (SGPT) 23 10 - 60 unit/L LAB CHEMISTRY METHOD 06/10/2025 2:50 PM EDT [facility] Alkaline Phosphatase 117 42 - 121 unit/L LAB CHEMISTRY METHOD 06/10/2025 2:50 PM EDT [facility] Total Protein 7.6 6.0 - 8.0 g/dL LAB CHEMISTRY METHOD 06/10/2025 2:50 PM EDT [facility] Albumin 4.0 3.2 - 5.0 g/dL LAB CHEMISTRY METHOD 06/10/2025 2:50 PM EDT [facility] Total Bilirubin 0.3 0.0 - 1.4 mg/dL LAB CHEMISTRY METHOD 06/10/2025 2:50 PM EDT [facility] Blood Venous blood specimen / Unknown Venipuncture / Unknown 06/10/2025 1:31 PM EDT 06/10/2025 1:54 PM EDT Fahad Ward MD LAB BLOOD ORDERABLES Final Resul t [facility] [address] [place] [address], * XR Lumbar Spine 4+ Views (03/30/2025 9:51 AM EDT) Anatomical Region Laterality Modality Spine, L-spine Radiographic Leslie ging 03/30/2025 2:13 PM EDT Impressions 03/30/2025 2:16 PM EDT No acute fracture or dislocation. Moderate degenerative changes of the lumbar spine -------- FINAL REPORT -------- Dictated By: Lele Pascual Dictated Date: 03/30/2025 14:13 ET Assigned Physician: Lele Pascual Reviewed and Electronically Signed By: Lele Pascual Signed Date: 03/30/2025 14:16 ET Workstation ID: [id number] Transcribed By: Self Edit Transcribed Date: 03/30/2025 14:13 ET Narrative 03/30/2025 2:16 PM EDT HISTORY: back pain TECHNIQUE: 4 views of the lumbar spine COMPARISON: Lumbar spine radiograph from 09/17/2015 FINDINGS: Vertebral body height is grossly maintained. Decreased disc height at T11-T12, T12-L1 and L5-S1. No evidence of spondylolisthesis. Moderate facet arthropathy at multiple levels. There is moderate neuroforaminal stenosis at multiple levels. Sacroiliac joints are patent. A portion of a probable TUCK POINTER HELPER shunt overlies the right mid abdomen adjacent to the lumbar spine. Procedure Note Lele Pascual MD - 03/30/2025 HISTORY: back pain TECHNIQUE: 4 views of the lumbar spine COMPARISON: Lumbar spine radiograph from 09/17/2015 FINDINGS: Vertebral body height is grossly maintained. Decreased disc height ssF67-D49, T12-L1 and L5-S1. No evidence of spondylolisthesis. Moderatefacet arthropathy at multiple levels. There is moderate neuroforaminalstenosis at multiple levels. Sacroiliac joints are patent. A portion of aprobable TUCK POINTER HELPER shunt overlies the right mid abdomen adjacent to the lumbarspine. IMPRESSION: No acute fracture or dislocation. Moderate degenerative changes of thelumbar spine -------- FINAL REPORT -------- Dictated By: Lele Pascual Dictated Date: 03/30/2025 14:13 ET Assigned Physician: Lele Pascual Reviewed and Electronically Signed By: Lele Pascual Signed Date: 03/30/2025 14:16 ET Workstation ID: [id number] Transcribed By: Self Edit Transcribed Date: 03/30/2025 14:13 ET us Lashawn Montesinos MD IMG XR PROCEDURES Final Result * (ABNORMAL) Microalbumin creatinine urine ratio (03/12/2025 3:24 PM EDT) Creatinine, Urine 230.0 mg/dL LAB CHEMISTRY METHOD 03/12/2025 5:44 PM EDT [facility] Microalb, Ur 56.6(H) 0.0 - 29.0 mg/L LAB CHEMISTRY METHOD 03/12/2025 5:44 PM EDT [facility] Microalb/Crea t Ratio 25 <30 mg/g creat LAB CHEMISTRY METHOD 03/12/2025 5:44 PM EDT [facility] Urine Urine specimen obtained by clean catch procedure / Unknown Non-blood Collection / Unknown 03/12/2025 3:24 PM EDT 03/12/2025 3:24 PM EDT Vahid Kemp MD LAB URINE ORDERABLES Final Resul t [facility] [address] [place] [address], [place] [phone] * MG Mammo Digital Diagnostic w Gary Left (12/23/2024 11:41 AM EDT) Anatomical Region Laterality Modality Breast Left Mammography 12/23/2024 11:1 8 AM EDT Impressions 12/23/2024 12:57 PM EDT 1. Stable left breast calcifications. Six-month follow-up recommended. Patient is due for bilateral mammography at this time. 2. Stable oval mass in the right breast. Recommend 6 month follow-up with mammography and ultrasound. BI-RADS CATEGORY: Mammography: 3 - PROBABLY BENIGN Ultrasound: 3 - PROBABLY BENIGN RECOMMENDATIONS: Short Interval Follow-up is recommended for bilateral breasts in 6 months. Diagnostic Ultrasound in 6 Months is recommended for the Right Breast. Mammo Location: [facility], [address] [place] [address], [id number], . -------- FINAL REPORT -------- Dictated By: Tereza Anand Dictated Date: 12/23/2024 11:18 ET Assigned Physician: Tereza Anand Reviewed and Electronically Signed By: Tereza Anand Signed Date: 12/23/2024 12:57 ET Workstation ID: [id number] Transcribed By: Self Edit Transcribed Date: 12/23/2024 12:55 ET Narrative 12/23/2024 12:57 PM EDT CLINICAL: 49 years old, Female, six-month follow-up right breast mass and left breast calcifications. COMPARISON: 06/02/2024, 06/26/2024, 04/18/2023, 07/17/2022, 10/21/2021 and 09/16/2020 FINDINGS: MAMMOGRAPHY TECHNIQUE: Unilateral left MLO and CC views were obtained digitally with 3-D mammogram (digital breast tomosynthesis). CC and the ML magnification views were obtained. Computer-aided detection was utilized in evaluation of this exam (CAD). There are stable grouped calcifications in the left upper outer breast at anterior depth. Additional stable scattered calcifications throughout the left breast. Stable round mass with associated biopsy marker and Magseed from prior biopsy- proven papillary lesion. BREAST DENSITY: B - There are scattered areas of fibroglandular density. ULTRASOUND TECHNIQUE: Ultrasound survey evaluation of the right breast was performed. Targeted ultrasound of the right breast at 6 o'clock 5 cm from the nipple demonstrates a stable 1.5 cm oval circumscribed mass. us Lashawn Montesinos MD IMG BI PROCEDURES Final Result * COLONOSCOPY Anesthesia - MAC; [facility] ENDOSCOPY (11/17/2024 4:06 PM EST) Anatomical Region Laterality Modality Endoscopy 11/17/2024 3:52 PM EST Impressions 11/17/2024 4:07 PM EST - Preparation of the colon was poor. - Stool in the entire examined colon. - No specimens collected. Recommendation: - Discharge patient to home. - This is the second attemped colonoscopy aborted due to poor bowel prep. I suggest FIT test, plus barium enema to be ordered by PCP. Narrative 11/17/2024 4:07 PM EST [facility] GI Patient Name: Les Cruz Procedure Date: 11/17/2024 3:52 PM Date of : 1975 Age: 49 Gender: Female Note Status: Finalized Attending MD: Maria Elena Cardoso MD, Procedure Date No Time: 11/17/2024 Procedure: Colonoscopy Indications: Screening for colorectal malignant neoplasm Providers: Maria Elena Cardoso MD Referring MD: Lashawn alvarez MD Medicines: Monitored Anesthesia Care Complications: No immediate complications. Estimated Blood Loss: Estimated blood loss: none. Procedure: Pre-Anesthesia Assessment: - Prior to the procedure, a History and Physical was performed, and patient medications and allergies were reviewed. The patient is competent. The risks and benefits of the procedure and the sedation options and risks were discussed with the patient. All questions were answered and informed consent was obtained. Patient identification and proposed procedure were verified by the physician, the nurse, the neurology epilepsy physician and the eligibility technician in the pre-procedure area in the endoscopy suite. Mental Status Examination: alert and oriented. Airway Examination: normal oropharyngeal airway and neck mobility. Respiratory Examination: clear to auscultation. CV Examination: normal. Prophylactic Antibiotics: The patient does not require prophylactic antibiotics. Prior Anticoagulants: The patient has taken no anticoagulant or antiplatelet agents. ASA Grade Assessment: III - A patient with severe systemic disease. After reviewing the risks and benefits, the patient was deemed in satisfactory condition to undergo the procedure. The anesthesia plan was to use monitored anesthesia care (MAC). Immediately prior to administration of medications, the patient was re-assessed for adequacy to receive sedatives. The heart rate, respiratory rate, oxygen saturations, blood pressure, adequacy of pulmonary ventilation, and response to care were monitored throughout the procedure. The physical status of the patient was re-assessed after the procedure. After I obtained informed consent, the scope was passed under direct vision. Throughout the procedure, the patient's blood pressure, pulse, and oxygen saturations were monitored continuously. The Colonoscope was introduced through the anus with the intention of advancing to the cecum. The scope was advanced to the hepatic flexure before the procedure was aborted. Medications were given. The colonoscopy was performed without difficulty. The patient tolerated the procedure well. The quality of the bowel preparation was poor. Findings: The perianal and digital rectal examinations were normal. A large amount of semi-solid solid stool was found in the entire colon, precluding visualization. Procedure Code(s): --- Professional --- G0121, 53, Colorectal cancer screening; colonoscopy on individual not meeting criteria for high risk Diagnosis Code(s): --- Professional --- Z12.11, Encounter for screening for malignant neoplasm of colon CPT copyright 2020 [employer]. All rights reserved. The codes documented in this report are preliminary and upon boat hoist operator helper review may be revised to meet current compliance requirements. Maria Elena Cardoso MD 11/17/2024 4:07:55 PM This report has been signed electronically.Maria Elena Cardoso MD Number of Addenda: 0 Note Initiated On: 11/17/2024 3:52 PM Scope In: 3:58:32 PM Scope Out: 4:04:58 PM Endoscopy Department at [facility] - [address] [place] [id number] Procedure Note Maria Elena Cardoso MD - 11/17/2024 [facility] GI Patient Name: Les Cruz Procedure Date: 11/17/2024 3:52 PM Date of : 1975 Age: 49 Gender: Female Note Status: Finalized Attending MD: Maria Elena Cardoso MD, Procedure Date No Time: 11/17/2024 Procedure: Colonoscopy Indications: Screening for colorectal malignant neoplasm Providers: Maria Elena Cardoso MD Referring MD: Lashawn alvarez MD Medicines: Monitored Anesthesia Care Complications: No immediate complications. Estimated Blood Loss: Estimated blood loss: none. Procedure: Pre-Anesthesia Assessment: - Prior to the procedure, a History and Physicalwas performed, and patient medications and allergieswere reviewed. The patient is competent. The risks and benefits of the procedure and the sedation optionsand risks were discussed with the patient. Allquestions were answered and informed consent was obtained. Patient identification and proposed procedure were verified by the physician, the nurse, theanesthetist and the eligibility technician in the pre-procedure area in the endoscopy suite. Mental Status Examination: alertand oriented. Airway Examination: normal oropharyngeal airway and neck mobility. Respiratory Examination: clear to auscultation. CV Examination: normal. Prophylactic Antibiotics: The patient does notrequire prophylactic antibiotics. Prior Anticoagulants: The patient has taken no anticoagulant or antiplatelet agents. ASA Grade Assessment: III - A patient with severe systemic disease. After reviewing the risksand benefits, the patient was deemed in satisfactory condition to undergo the procedure. The anesthesia plan was to use monitored anesthesia care (MAC). Immediately prior to administration of medications, the patient was re-assessed for adequacy to receive sedatives. The heart rate, respiratory rate, oxygen saturations, blood pressure, adequacy of pulmonary ventilation, and response to care were monitored throughout the procedure. The physical status ofthe patient was re-assessed after the procedure. After I obtained informed consent, the scope was passed under direct vision. Throughout theprocedure, the patient's blood pressure, pulse, and oxygen saturations were monitored continuously. The Colonoscope was introduced through the anus withthe intention of advancing to the cecum. The scope was advanced to the hepatic flexure before theprocedure was aborted. Medications were given. Thecolonoscopy was performed without difficulty. The patient tolerated the procedure well. The quality of thebowel preparation was poor. Findings: The perianal and digital rectal examinations were normal. A large amount of semi-solid solid stool was foundin the entire colon, precluding visualization. Procedure Code(s): --- Professional --- G0121, 53, Colorectal cancer screening; colonoscopyon individual not meeting criteria for high risk Diagnosis Code(s): --- Professional --- Z12.11, Encounter for screening for malignantneoplasm of colon CPT copyright 2020 [employer]. All rights reserved. The codes documented in this report are preliminary and upon boat hoist operator helper reviewmay be revised to meet current compliance requirements. Maria Elena Cardoso MD 11/17/2024 4:07:55 PM This report has been signed electronically.Maria Elena Cardoso MD Number of Addenda: 0 Note Initiated On: 11/17/2024 3:52 PM Scope In: 3:58:32 PM Scope Out: 4:04:58 PM Endoscopy Department at [facility] - [address] [place] [phone] IMPRESSION: - Preparation of the colon was poor. - Stool in the entire examined colon. - No specimens collected. Recommendation: - Discharge patient to home. - This is the second attemped colonoscopy aborteddue to poor bowel prep. I suggest FIT test, plus barium enema to be ordered by PCP. us Maria Elena Cardoso MD GI~PROCEDURE ORDERABLES Fin al Result * (ABNORMAL) Lipid panel with reflex to direct LDL (10/07/2024 12:26 PM EST) Cholesterol 185 0 - 200 mg/dL LAB CHEMISTRY METHOD 10/07/2024 5:02 PM EST [facility] Triglycerides 132 0 - 150 mg/dL LAB CHEMISTRY METHOD 10/07/2024 5:02 PM EST [facility] HDL 49 >=40 mg/dL LAB CHEMISTRY METHOD 10/07/2024 5:02 PM [facility] LDL Calculated 110(H) 0 - 100 mg/dL LAB CHEMISTRY METHOD 10/07/2024 5:02 PM EST [facility] VLDL Cholesterol Reinier 26.4 mg/dL LAB CHEMISTRY METHOD 10/07/2024 5:02 PM EST [facility] Non HDL Chol. (LDL+VLDL) 136 <145 mg/dL LAB CHEMISTRY METHOD 10/07/2024 5:02 PM EST [facility] Chol/HDL Ratio 3.8 0.0 - 4.4 LAB CHEMISTRY METHOD 10/07/2024 5:02 PM [facility] Blood Venous blood specimen / Unknown Venipuncture / Unknown 10/07/2024 12:26 PM EST 10/07/2024 12:26 PM EST us Lashawn Montesinos MD LAB BLOOD ORDERABL ES Final Result [facility] [address] [place] [address], [place] [phone] * Hemoglobin A1c (10/07/2024 12:26 PM EST) Hemoglobin A1C 6.2 <6.5 % LAB CHEMISTRY METHOD 10/07/2024 8:06 PM EST [facility] Mean Bld Glu Estim. 131 mg/dL LAB CHEMISTRY METHOD 10/07/2024 8:06 PM EST [facility] Blood Venous blood specimen / Unknown Venipuncture / Unknown 10/07/2024 12:26 PM EST 10/07/2024 12:26 PM EST Lashawn Montesinos MD LAB BLOOD ORDERABL ES Final Result [facility] [address] [place] [address], * Depression Screening (03/05/2024) [facility] Depression Screening abstracted Historical Provider HEALTH MAINTENANCE Final Result * Diabetes Foot Exam (03/05/2024) [facility] Diabetes: Annual Foot Exam abstracted Historical Provider HEALTH MAINTENANCE Final Result * HIV Screening (11/07/2019) [facility] HIV Screening abstracted Historical Provider HEALTH MAINTENANCE Final Result * Hepatitis C Screening (11/07/2019) [facility] Hepatitis C Screening abstracted Historical Provider HEALTH MAINTENANCE Final Result from Last 3 Months or Most Recently Relevant to Health Maintenance Insurance [facility] Member Subscriber Plan / Payer (Ef fective 2022-Present) Name:LES CRUZ Relation to Subscriber:Self Name:Les Cruz Payer ID:[id number] Group ID:[id number] Type:Not on file Address: [facility] [address] [phone] Advance Directives Documents on File Type Date Recorded 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 Health Care Decision (hx) 03/12/2022 AD FUENTES DIRECTIVE Health Care Decision (hx) 03/12/2022 AD FUENTES DIRECTIVE Health Care Decision (hx) 03/12/2022 AD FUENTES DIRECTIVE Health Care Decision (hx) 03/12/2022 AD FUENTES DIRECTIVE Health Care Decision (hx) 03/12/2022 AD FUENTES DIRECTIVE Health Care Decision (hx) 03/12/2022 AD FUENTES DIRECTIVE Health Care Decision (hx) 03/12/2022 AD FUENTES DIRECTIVE Health Care Decision (hx) 03/12/2022 AD FUENTES DIRECTIVE Health Care Decision (hx) 03/12/2022 AD FUENTES DIRECTIVE Health Care Decision (hx) 03/12/2022 AD FUENTES DIRECTIVE Health Care Decision (hx) 03/12/2022 AD FUENTES DIRECTIVE Health Care Decision (hx) 03/12/2022 AD FUENTES DIRECTIVE Health Care Decision (hx) 03/12/2022 AD FUENTES DIRECTIVE Health Care Decision (hx) 03/12/2022 AD FUENTES DIRECTIVE Health Care Decision (hx) 03/12/2022 AD FUENTES DIRECTIVE Health Care Decision (hx) 03/12/2022 AD FUENTES DIRECTIVE Health Care Decision (hx) 03/12/2022 AD FUENTES DIRECTIVE Health Care Decision (hx) 03/12/2022 AD FUENTES DIRECTIVE Health Care Decision (hx) 03/12/2022 AD FUENTES DIRECTIVE Health Care Decision (hx) 03/12/2022 AD FUENTES DIRECTIVE Health Care Decision (hx) 03/12/2022 AD FUENTES DIRECTIVE Care Teams Sleeve Tailor Relationship Specialty Start Date End Date Lashawn Montesinos MD [address] [place] [phone] PCP - General Internal Medicine 06/06/22
--- OUTSIDE RECORDS SUMMARY | 2025-06-29 14:31 | XMS_ITS | Encounter Summary ---
Author Organization [facility] Address [address] [place] [address] Phone Care Team Providers Care Aircraft Structural Fitter Name Role Phone Lashawn Cloud MD Primary Care Provider + Encounter Details Date Type Department Care Team (Late st Contact Info) Description 03/15/2023 Documentation Only [facility] [address] [place] [address] Allison Hutson [address] [place] [address] Social History Tobacco Use Types Packs/Day [...] Visit [facility] [address] [place] [address] Isaias Randall MD [address] [facility] [place] [address] documented as of this encounter Visit Diagnoses Not on filedocumented in this encounter Care Teams Aircraft Structural Fitter Relationship Specialty Start Date End Date Lashawn Cloud MD PCP - General 03/19/23 documented as of this encounter
--- OUTSIDE RECORDS SUMMARY | 2025-06-29 14:31 | XMS_ITS | Encounter Summary ---
Author Organization [facility] Address [address] [place] [address] Care Team Providers Care Rag Grader Name Role Phone Lashawn Montesinos MD Primary Care Prov ider Reason for Visit * Reason Onset Date Comments Fitting for DME 06/16/2025 Encounter Details Date Type Department Care Team ([facility] st Contact Info) Description 06/16/2025 Telephone Adult Medicine [address] [phone] Chery Chavez [place] Social History Tobacco Use Types Packs/Day Years Used Date Smoking Tobacco: Never Smokeless Tobacco: Never Alcohol Use Standard Drinks/Week Comments Not Currently [...] care for your loved ones. For example, rn child or elderly care for an older adult? [...] Orientation Straight 11/11/2024 9: 32 AM EST documented as of this encounter Progress Notes * Justo Ayala MA - 06/24/2025 4:25 PM EDT Orders faxed. * Chery Chavez MA - 06/16/2025 11:48 AM EDT DME REQUEST Name of Product: Small Rollator walker and a replacement recliner the one she has is unrepairable. Specific information about product # Needed 1 of each Reason patient is asking for this supply? Current rollator is to big and recliner is broken Have you received this supply before? If yes , when?: Yes. A while ago Have you discussed the need for this supply with a provider at a recent visit? If yes, with who andwhen? No When completed: Fax to [employer] FAX#[phone] Who is requested? The patient Is this a fax request?no Have you told the patient it will take 7-10 days for completion of this request? Yes documented in this encounter Plan of Treatment Upcoming Encounters Date Type Department Care Team (Late st Contact Info) Description 07/01/2025 10:45 AM EDT Office Visit Orthopedic Surgery [facility] [address] [phone] Zach Tarango DPAravind [address] [address] 07/01/2025 2:00 PM EDT Appointment [facility] [address] [place] [phone] 07/02/2025 11:15 AM EDT Office Visit Endocrinology [address] [phone] Vahid Kemp MD [address] [place] [address] 07/07/2025 1:00 PM EDT Office Visit Bariatric Surgery [facility] 175 [facility] [address] [place] [phone] Brody Mart MD [address] [place] [phone] 07/30/2025 11:30 AM EDT Office Visit Adult Medicine [place] [address] [phone] Kina Peter PA [address] [place], [place] 06/17/2026 10:00 AM EDT Office Visit Gastroenterology - [place] 175 [facility] 175 [facility] [address] [place] [address] Jaycee Bryan, URBAN [address] [facility] [address] [place] [address] documented as of this encounter Visit Diagnoses Diagnosis Left hemiparesis (CMS/HCC V24, CMS/HCC V28)- Primary Unspecified hemiplegia affecting unspecified side documented in this encounter Orders General Supply Count Last Ordered Date First Or dered Date POWER LIFT RECLINER 1 06/24/2025 documented in this encounter Additional Health Concerns Assessment Noted Time PHQ-9 Depression Total Score: 0 02/12/20 25 10:19 AM EDT documented as of this encounter Care Teams Rag Grader Relationship Specialty Start Date End Date Lashawn Montesinos MD [address] [place], [place] PCP - General Internal Medicine 06/06/22 documented as of this encounter
--- OUTSIDE RECORDS SUMMARY | 2025-06-29 14:31 | XMS_ITS | Encounter Summary ---
Author Organization [facility] Address [address] [place] [address] Phone Care Team Providers Care Batchmaker Name Role Phone Lashawn Cloud MD Primary Care Provider + Encounter Details Date Type Department Care Team (Late st Contact Info) Description 12/05/2022 Documentation Only [facility] [address] [facility] [address] Allison Hutson [address] [place] [address] Social History Tobacco Use Types [...] Visit [facility] [address] [place] [place] [address] Isaias Randall MD [address] [facility] [place] [address] documented as of this encounter Visit Diagnoses Not on filedocumented in this encounter Care Teams Batchmaker Relationship Specialty Start Date End Date Lashawn Cloud MD PCP - General 03/19/23 documented as of this encounter
--- OUTSIDE RECORDS SUMMARY | 2025-06-29 14:31 | XMS_ITS | Encounter Summary ---
Author Organization [facility] Address [address] [place] [address] Phone Care Team Providers Care Butane Compressor Operator Name Role Phone Lashawn Cloud MD Primary Care Provider + Encounter Details Date Type Department Care Team (Late st Contact Info) Description 07/20/2023 Documentation Only [facility] [address] [place] [address] Allison Hutson [address] [place] [address] Social History Tobacco Use Types [...] Visit [facility] [address] [place] [address] Isaias Randall MD [address] [facility] [place] [address] documented as of this encounter Visit Diagnoses Not on filedocumented in this encounter Care Teams Butane Compressor Operator Relationship Specialty Start Date End Date Lashawn Cloud MD PCP - General 03/19/23 documented as of this encounter
--- OUTSIDE RECORDS SUMMARY | 2025-06-29 14:31 | XMS_ITS | Encounter Summary ---
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
--- OUTSIDE RECORDS SUMMARY | 2025-06-29 14:31 | XMS_ITS | Clinical Summary ---
Author Organization [facility], Address [address] [place] [address] [place] [address] Phone Care Team Providers Care Base Remover Name Role Phone Lashawn Cloud MD Primary Care Provider + Allergies Active Allergy Reactions Criticality Noted Date Comments Amlodipine Other (see comments) 09/23/2019 Prednisone & Diphenhydramine Other (see comments) 09/23/2019 Eplerenone Other (see comments) 09/23/2019 Ferumoxytol Other (see comments) 01/03/2018 Lisinopril Other (see comments) 09/23/2019 Spironolactone 03/11/2022 Medications levETIRAcetam (KEPPRA) 750 MG tablet Take 1 tablet (750 mg total) by mouth 2 (two) times a day 60 tablet 5 07/11/20 21 Active traZODone (DESYREL) 150 MG tablet Take 150 mg by mouth every night Active ziprasidone (GEODON) 60 MG capsule Take 60 mg by mouth every night Active prazosin (MINIPRESS) 5 MG capsule Take 5 mg by mouth 2 (two) times a day Active folic acid (FOLVITE) 1 MG tablet TAKE 1 TABLET BY MOUTH 1 TIME EACH DAY. 90 tablet 3 02/13/20 23 Active cloNIDine (CATAPRES) 0.3 MG tablet Take 1 tablet (0.3 mg total) by mouth 1 (one) time each day 180 tablet 3 12/20/19 24 Active Tresiba FlexTouch 200 UNIT/ML injection INJECT 100 UNITS SUBCUTANEOUSLY ONCE DAILY AT BEDTIME DIRECTED Active Ozempic, 2 MG/DOSE, 8 MG/3ML solution pen-injector INJECT 2 MG INTO THE SKIN ONCE A WEEK FOR 4 DOSES. 04/17/20 24 Active labetalol (NORMODYNE) 200 MG tablet Take 2 tablets (400 mg total) by mouth in the morning and 2 tablets (400 mg total) in the evening. 360 tablet 3 06/18/20 24 Active cyclobenzaprine (FLEXERIL) 10 MG tablet Take 1 tablet (10 mg total) by mouth 3 (three) times a day if needed for muscle spasms for up to 10 days 42 tablet 06/18/20 24 Active potassium citrate 10 MEQ (1080 MG) CR tablet Take 2 tablets (20 mEq total) by mouth in the morning and 2 tablets (20 mEq total) at noon and 2 tablets (20 mEq total) in the evening. Take with meals. Do not crush, chew, or split.. 180 tablet 2 08/29/20 24 Active amitriptyline (ELAVIL) 150 MG tablet TAKE 0.5 TABLETS (75 MG TOTAL) BY MOUTH 1 (ONE) TIME EACH DAY IN THE EVENING 45 tablet 3 10/30/19 25 Active gabapentin (NEURONTIN) 300 MG capsule Take 1 capsule (300 mg total) by mouth in the morning and 1 capsule (300 mg total) in the evening and 1 capsule (300 mg total) before bedtime. 90 capsule 11/07/19 25 026 Active atorvastatin (LIPITOR) 20 MG tablet TAKE 1 TABLET (20 MG TOTAL) BY MOUTH ONE TIME EACH DAY 90 tablet 3 11/27/19 25 Active levothyroxine (SYNTHROID, LEVOTHROID) 75 MCG tabletIndications :Hypothyroidism, not otherwise specified TAKE 1 TABLET (75 MCG TOTAL) BY MOUTH ONE TIME EACH DAY. 90 tablet 3 01/22/20 25 Active losartan (COZAAR) 100 MG tablet Take 1 tablet (100 mg total) by mouth 1 (one) time each day 90 tablet 3 02/26/20 25 Active dilTIAZem CD (CARDIZEM CD) 360 MG 24 hr capsuleIndication s:Primary aldosteronism (HCC) Take 1 capsule (360 mg total) by mouth 1 (one) time each day 90 capsule 05/27/20 026 Active eplerenone (INSPRA) 50 MG tabletIndications :Primary aldosteronism (HCC) Take 2 tablets (100 mg total) by mouth in the morning and 2 tablets (100 mg total) in the evening. 360 tablet 3 05/27/20 25 Active Active Problems Problem Noted Date Diagnosed Date Essential (primary) hypertension 06/02/2025 Hypo-osmolality and hyponatremia 06/18/2024 Osteoarthritis 08/21/2023 Chronic kidney disease, stage 2 (mild) Type 2 diabetes mellitus wit h diabetic chronic kidney disease 07/11/2021 Seizure 07/11/2021 Hypothyroidism 11/29/2020 Adrenal hyperplasia Overview (03/10/2020): bilateral Edema of lower extremity Hyperlipidemia Hypokalemia Iron deficiency anemia Overview (03/10/2020): severe, due to menstrual cycle Primary aldosteronism Encounters Date Type Department Care Team Description 06/16/2025 2:40 PM EDT Office Visit [facility] [address] [place] [address] Isaias Randall MD Primary aldosteronism (HCC) (Primary Dx) 06/02/2025 3:30 PM EDT Office Visit [facility] [address] [place] [address] Isaias Randall MD Essential (primary) hypertension (Primary Dx) 05/27/2025 9:20 AM EDT Office Visit [facility] [address] [place] [address] Isaias Randall MD Primary aldosteronism (HCC) (Primary Dx) from Last 3 Months Immunizations Immunization Administration Dates Next Due Pneumococcal Polysaccharide 08/13/2017 Family History Medical History Relation Comments Cancer Father prostate and col on on fathers side not father personally Colon cancer Father Heart disease Father mother not her f ather personally Prostate cancer Father Heart disease Maternal Grandfather Cancer Mother breast cervical and uterine on mothers side but not mother personally Dementia Mother father Diabetes Mother parents and sist er Gout Mother father Heart disease Mother father Hypertension Mother parents and dise ase Kidney disease Mother lupus Lupus Mother Stroke Mother father Heart disease Paternal Grandmother Diabetes Sibling Relation Status Comments Father Alive Maternal Grandfather Mother Alive Paternal Grandmother Sibling Social History Tobacco Use Types Packs/Day Years Used Date Smoking Tobacco: Never Alcohol Use Standard Drinks/Week Comments No 0 (1 standard drink = 0.6 oz pur e alcohol) Comments Unknown Sex and Gender Information Value Date Recorded Sex Assigned at Not on file Legal Sex Female 4:34 PM EST Gender Identity Not on file Sexual Orientation Not on file Last Filed Vital Signs Vital Sign Reading Time Taken Comments Blood Pressure 120/80 09/01/2019 12:01 PM EST Pulse - - Temperature - - Respiratory Rate - - Oxygen Saturation - - Inhaled Oxygen Concentration - - Weight 136 kg (300 lb) 09/01/2019 12:01 PM EST Height 165.1 cm (5' 5 ) 09/01/2019 12:01 PM EST Body Mass Index 49.92 09/01/2019 12:01 PM EST Plan of Treatment Upcoming Encounters Date Type Department Care Team (Late st Contact Info) Description 07/08/2025 9:10 AM EDT Office Visit [facility] [place], [address] [facility] [place] [phone] Isaias Randall MD [address] [facility] [place] [phone] Health Maintenance Due Date Last Done Comments Hepatitis B Vaccine (1 of 3 - 19+ 3-dose series) 1996 Pneumococcal Vaccine: Peds ( 0 to 5 Years) and At-Risk Patients (6 to 49 Years) (2 of 2 - PCV) 08/13/2018 08/13/2017 Diabetes: Ophthalmology Exam 07/12/2021 Diabetes: Pedal Pulse Checked 07/12/2021 Diabetes: Sensory Foot Exam 07/12/2021 Diabetes: Visual Foot Exam 07/12/2021 Diabetes: Hemoglobin A1C 01/05/2025 024, 06/16/2024, 12/17/2023, Additional history exists Influenza Vaccine (#1) 2025 Pneumococcal Vaccine: 50+ Years Discontinued 7 Procedures Procedure Name Priority Date/Time Associated Diagnosis Comments HEMOGLOBIN A1C Routine 07/11/2021 4:22 PM EDT Chronic kidney disease, stage 2 (mild) Adrenal hyperplasia (HCC) Edema of lower extremity Hyperlipidemia, not otherwise specified Primary aldosteronism (HCC) Prediabetes from Last 3 Months or Most Recently Relevant to Health Maintenance Results * (ABNORMAL) Hemoglobin A1c (07/11/2021 4:22 PM EDT) Hemoglobin A1C 10.4(H) (4.0-5.6) % [facility] Comment: MONITORING: In known diabetic patients, hemoglobin A1c targets should be discussed with health care provider. DIAGNOSTIC USE: The [place] Diabetes Association (ADA) and the World Health Organization (WHO) recommend the use of HbA1c to diagnose diabetes using a threshold of 6.5%. Patients who have an HbA1c between 5.7% and 6.4% are considered at increased risk for developing diabetes in the future. CAUTION: Falsely low HbA1c results may be observed in patients with hemolytic anemia, homozygous forms of abnormal hemoglobin (e.g. SS, CC, SC), , recent blood loss or hemoglobin F greater than 7%. Fructosamine may be used as an alternate test in these cases. REFERENCE: ADA: Standards of Medical Care in Diabetes 2020, The Journal of Clinical and Applied Research and Education Volume 43, Supplement 1 Testing performed or reported by [facility], a Service of [facility], [address] [place] [address] Blanca Katz MD, Janitorial Manager [facility]# [id number] Blood specimen (specimen) Venous blood / Unknown 07/11/2021 4:22 PM EDT 07/11/2021 4:29 PM EDT us Chetan Brown MD LAB BLOOD ORDERABLE S Final Result [facility] from Last 3 Months or Most Recently Relevant to Health Maintenance Insurance [employer] ([id number]) [place] [id number] Care Teams Base Remover Relationship Specialty Start Date End Date Lashawn Cloud MD PCP - General 03/19/23
--- OUTSIDE RECORDS SUMMARY | 2025-06-29 14:31 | XMS_ITS | Encounter Summary ---
Author Organization [facility] Address [address] [place] [address] Phone Care Team Providers Care Steam Box Tender Name Role Phone Lashawn Cloud MD Primary Care Provider + Encounter Details Date Type Department Care Team (Late st Contact Info) Description 05/01/2022 Documentation Only [facility] [address] [place] [address] Allison Hutson [address] [place] [address] Social History Tobacco Use Types [...] Visit [facility] [address] [place] [address] Isaias Randall MD [address] [facility] [place] [address] documented as of this encounter Visit Diagnoses Not on filedocumented in this encounter Care Teams Steam Box Tender Relationship Specialty Start Date End Date Lashawn Cloud MD PCP - General 03/19/23 documented as of this encounter
== END 2025-06-29 12:28 | disposition home or self-care (01) ==
LOC: HO.HSM 11:49
PROVIDERS: PCP Internal Medicine; Referring Provider Internal Medicine; Visit Provider Registered Nurse
DX: G40.909 Epilepsy, unspecified, not intractable, without status epilepticus (principal); G43.909 Migraine, unspecified, not intractable, without status migrainosus; G44.40 Drug-induced headache, not elsewhere classified, not intractable
CPT/HCPCS: 99214

== ENCOUNTER → 2025-06-29 11:49 | Outpatient (BNVA) | payer OTHER, SELFPAY | PROVIDERS: PCP Internal Medicine; Referring Provider Internal Medicine; Visit Provider Registered Nurse | DX: G43.909 Migraine, unspecified, not intractable, without status migrainosus (principal); G44.40 Drug-induced headache, not elsewhere classified, not intractable | CPT/HCPCS: 99212 ==

== ENCOUNTER 2025-09-28 11:12 | Outpatient (AMB) | payer MEDICAID, SELFPAY ==
--- NOTE | 2025-09-28 11:14 | MHC.OFFVIS ---
Intake Visit Reasons: 3m sz Allergies No Known Allergies Allergy (Verified 09/28/25 11:16) Medication List - Last Reconciled 09/28/25 by Tabitha Ordonez CNP acetaminophen-codeine 300-30 mg 1 tab PO Q6H PRN amitriptyline 75 mg PO QPM atorvastatin 80 mg PO DAILY buspirone 30 mg PO BID cetirizine 10 mg PO DAILY clonidine HCl 0.3 mg PO TID PRN empagliflozin (Jardiance) 25 mg PO QAM eplerenone mg PO famotidine 20 mg PO BID gabapentin 300 mg PO ibuprofen 800 mg PO Q8H PRN insulin degludec (Tresiba FlexTouch U-200 insulin) 100 units subcut BEDTIME levetiracetam 500 mg PO BID 90 days levetiracetam 1,000 mg PO BID 90 days levothyroxine 75 mcg PO DAILY losartan 100 mg PO DAILY metoclopramide HCl 10 mg PO QID olanzapine 10 mg PO DAILY prazosin 10 mg PO BID rizatriptan take 1 tab at onset of headache; if no relief may repeat 1 tab after at least 4 hrs; max = 2 tabs/24 hr PO 30 days tirzepatide (Mounjaro) mg subcut trazodone 150 - 300 mg PO BEDTIME PRN venlafaxine ER 75 mg PO QAM venlafaxine ER mg PO HPI Comments Details: 49-year-old RH woman with epilepsy vs non epileptic spells. She suffered from obesity, HTN, PTSD, with a diagnosis of pseudotumor cerebri s/p shunting procedure in 2000, who stated that she was having episodes when she would lose time a little bit. She could get frozen, and she could become unaware of things going on around her. She would urinate when this happened, like she would lose control of her body. Her EEGs have not revealed any epileptic tendency. She believed that treatment with Keppra helped her and she was not having these episodes as often as before. She went to [facility] in 08/2025. She was in the bathroom and her mother heard her talking to herself, not making sense, and then she fell. She may have passed out. Her son helped her up and sat her on the toilet. While sitting down, she passed out and hit head. Her mother was also there and says she passed out for a good 8 minutes. She was admitted to [facility] for about a week with break through seizure. She had a virus for about 3 days at this time and could not keep anything down. She had missed her seizure medications. She also apparently did not increase levetiracetam dose, and was still taking levetiracetam 1000mg twice a day and 250mg twice a day. She saw her PCP when she was discharged, and was sent back to [facility] for blood pressure. There are no records available from [facility] (or PCP) at this time. She had few small seizures where she spaces out for few seconds. Headaches were happening almost every day. She was still taking Tylenol 3-4x/day, which she has been doing for last few months. [facility] Medical History (Updated 06/29/25 @ 12:26 by Tabitha Ordonez CNP) IIH (idiopathic intracranial hypertension) PTSD (post-traumatic stress disorder) Hypertension Review of Systems Const Denies chills, Denies daytime sleepiness, Reports difficulty sleeping, Denies fatigue, Denies fever(s), Denies frequent falls, Reports headache(s), Denies increased appetite, Denies poor appetite, Denies snoring, Denies weakness, Denies weight gain and Denies weight loss Eyes Denies loss of vision ENT Denies vertigo, Reports dizziness and Reports headache(s) Card Denies chest pain at rest, Denies chest pain with activity, Denies syncope, Denies leg edema and Denies palpitations Resp Denies snoring GI Denies constipation, Denies heartburn, Denies diarrhea and Denies nausea Denies urinary frequency, Denies urinary incontinence and Denies urinary urgency Musc Denies abnormal gait, Denies numbness and Denies tingling Skin/Breast Denies dry skin and Denies rash Neuro Denies abnormal gait, Denies vertigo, Reports dizziness, Denies syncope, Denies frequent falls, Reports headache(s), Denies lack of coordination, Denies loss of vision, Denies memory loss, Denies numbness, Denies restless legs, Denies seizure-like activity, Denies tingling, Denies paresthesias, Denies tremor(s) and Denies weakness Psych Denies anxiety, Denies depression, Denies auditory hallucinations, Denies memory loss, Denies visual hallucinations and Denies suicidal ideation Endo Denies fatigue and Denies palpitations Physical Exam Const Other: General Appearance:? normal, in no acute distress. Skin:? no rashes, no significant birthmarks. Heart:? S1, S2 normal, no murmurs. Lungs:? clear anteriorly and posteriorly. Extremities:? no edema. Psych:? alert, oriented, cognitive function intact, cooperative with exam. Neuro Other: Mental Status:?Normal attention, orientation, and flat affect.? Cranial Nerves:?Pupils are equal, round and reactive to light. External occular muscles are intact. Visual covarrubias are full. Face is symmetrical. Facial sensations are normal. Tongue is midline. Palate elevates symmetrically. Shoulder shrugging is normal. Hearing to bedside conversation is normal. Sensory Exam:?....? Coordination:?No ataxia,?no titubation.? Gait Exam: With walker. Cerebellar Signs:?Lvvece-kn-alaf is okay. Extrapyramidal System:?No tremor, rigidity with normal facial expressions.? Pronator Drift:?Not present.? Involuntary Movements:?No tremors seen.? Speech:?Normal.? Results Reviewed Results Reviewed: EEG at off in Oct 2024: questionable abnormality of left hemisphere the most of the EEG was unremarkable EEG at off in Oct 2021: WNL CT brain WO at [facility] in Sep 2021: OK, s/p shunting Amb EEG [facility] in Oct 2020: OK Routine EEG at office in Sep 2020: WNL EEG at [facility] in Sep 2018: WNL MRI brain at [facility] in Oct 2017: s/p CORRECTIONAL MAINTENANCE TECHNICIAN shunt, a few non specific WM hyperintensities Assessment & Plan Assessment & Plan (1) Seizure disorder: Code(s): G40.909 - Epilepsy, unspecified, not intractable, without status epilepticus Category: Medical Plan: She did not increase levetiracetam dose as recommended at previous appointment - she was still taking levetiracetam 1000mg twice a day with 250mg twice a day (instead of 500mg twice a day). She also had viral infection with GI upset, unable to keep medications down, and had missed seizure medications for few days before episode in 08/2025. No records were available from [facility] for review at this time, will request records. She was still having few small episodes. She was advised to increase levetiracetam dose as previously recommended: Levetiracetam 1000mg 1 tablet twice a day. Levetiracetam 500mg 1 tablet twice a day (instead of 250mg twice a day) She was educated on the importance of medication compliance and risk associated with missed doses, including seizures. Follow up in 8 weeks or sooner as needed. (2) Migraine: Code(s): G43.909 - Migraine, unspecified, not intractable, without status migrainosus Category: Medical Qualifiers: Migraine type: unspecified Status migrainosus presence: without status migrainosus Intractability: not intractable Qualified Code(s): G43.909 - Migraine, unspecified, not intractable, without status migrainosus Plan: Continue rizatriptan 10mg 1 tablet as needed for migraine. (3) Medication overuse headache: Code(s): G44.40 - Drug-induced headache, not elsewhere classified, not intractable Category: Medical Plan: She was educated on this condition. She was advised to stop Tylenol (and other OTC analgesics) completely. Plan Meds tried: sumatriptan Medications: Refilled levetiracetam 500 mg PO BID 180 tabs 1RF 90 days Coding Level of Care Code Est Pt Level 4 (51758) Diagnoses Seizure disorder G40.909 Migraine without status migrainosus, not intractable, unspecified migraine type G43.909 Migraine type: unspecified Status migrainosus presence: without status migrainosus Intractability: not intractable Medication overuse headache G44.40
--- OUTSIDE RECORDS SUMMARY | 2025-09-28 14:17 | XMS_ITS | Encounter Summary ---
Author Organization [facility], Address [address] [place] [address] Phone Care Team Providers Care Director Of Group Sales Name Role Phone Lashawn Cloud MD Primary Care Provider + Encounter Details Date Type Department Care Team (Late st Contact Info) Description 04/05/2020 Orders Only 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
--- OUTSIDE RECORDS SUMMARY | 2025-09-28 14:17 | XMS_ITS | Encounter Summary ---
Author Organization [facility], Address [address] [place] [address] Phone Care Team Providers Care Hotel Controller Name Role Phone Lashawn Cloud MD Primary Care Provider + Encounter Details Date Type Department Care Team (Late st Contact Info) Description 01/16/2025 Documentation Only [facility], [address] [place] [address] [place], [place] [address] [place] [address] Social History Tobacco Use Types [...] on filedocumented in this encounter Care Teams Hotel Controller Relationship Specialty Start Date End Date Lashawn Cloud MD [address] [place] [address] PCP - General 03/19/23 documented as of this encounter
--- OUTSIDE RECORDS SUMMARY | 2025-09-28 14:17 | XMS_ITS ---
Author Name [facility] Organization Unknown Care Team Organization Name Specialty Phone Email Start Date End Da te [facility] Katy Stein Primary Care 08/15/2022 024
--- OUTSIDE RECORDS SUMMARY | 2025-09-28 14:17 | XMS_ITS | Encounter Summary ---
Author Organization [facility], Address [address] [place] [address] Phone Care Team Providers Care Laborer Chemical Processing Name Role Phone Lashawn Cloud MD Primary Care Provider + Encounter Details Date Type Department Care Team (Late st Contact Info) Description 03/15/2023 Documentation Only [facility], [address] [place] [address] Allison Hutson [address] [place] [address] Social History Tobacco Use Types [...] on filedocumented in this encounter Care Teams Laborer Chemical Processing Relationship Specialty Start Date End Date Lashawn Cloud MD [address] [place] [address] PCP - General 03/19/23 documented as of this encounter
--- OUTSIDE RECORDS SUMMARY | 2025-09-28 14:17 | XMS_ITS ---
Author Organization [facility] Address [address] [place] [address] Phone Care Team Providers Care Cork Insulator Helper Name Role Phone Lashawn Montesinos MD Primary Care Prov ider Community Health Worker Program Status:Identified (Enrolling) Start date:09/23/2025 Enrollment reason:Hypertension management Overview Community Health Worker Program Case Team Name Relationship Phone Alvarez Holt(Responsible Staff) Community Health Worker Continued Care and Services Coordination
--- OUTSIDE RECORDS SUMMARY | 2025-09-28 14:17 | XMS_ITS | Encounter Summary ---
Author Organization [facility], Address [address] [place] [address] Phone Care Team Providers Care Desolderer Name Role Phone Lashawn Cloud MD Primary Care Provider + Encounter Details Date Type Department Care Team (Late st Contact Info) Description 07/20/2023 Documentation Only [facility], [address] [place] [address] Allison Hutson [address] [place] [address] Social History Tobacco Use Types [...] on filedocumented in this encounter Care Teams Desolderer Relationship Specialty Start Date End Date Lashawn Cloud MD [address] [place] [address] PCP - General 03/19/23 documented as of this encounter
--- OUTSIDE RECORDS SUMMARY | 2025-09-28 14:17 | XMS_ITS | Encounter Summary ---
Author Organization [facility] [place], Address [address] [place] [address] Phone Care Team Providers Care Bleach Tester Name Role Phone Lashawn Cloud MD Primary Care Provider + Encounter Details Date Type Department Care Team (Late st Contact Info) Description 12/05/2022 Documentation Only [facility], [address] [place] [address] Allison Hutson [address] [place] [address] Social History Tobacco Use Types [...] on filedocumented in this encounter Care Teams Bleach Tester Relationship Specialty Start Date End Date Lashawn Cloud MD [address] [place] [address] PCP - General 03/19/23 documented as of this encounter
--- OUTSIDE RECORDS SUMMARY | 2025-09-28 14:17 | XMS_ITS | Encounter Summary ---
Author Organization [facility], Address [address] [place] [address] Phone Care Team Providers Care Home Delivery Driver Name Role Phone Lashawn Cloud MD Primary Care Provider + Encounter Details Date Type Department Care Team (Late st Contact Info) Description 08/26/2025 Documentation Only [facility], [address] [address] [place], [place] [address] [place] [address] Social History Tobacco Use Types [...] on filedocumented in this encounter Care Teams Home Delivery Driver Relationship Specialty Start Date End Date Lashawn Cloud MD [address] [place] [address] PCP - General 03/19/23 documented as of this encounter
--- OUTSIDE RECORDS SUMMARY | 2025-09-28 14:17 | XMS_ITS | Encounter Summary ---
Author Organization [facility], Address [address] [place] [address] Phone Care Team Providers Care Home Maker Name Role Phone Lashawn Cloud MD Primary Care Provider + Encounter Details Date Type Department Care Team (Late st Contact Info) Description 05/01/2022 Documentation Only [facility], [address] [place] [address] Allison Hutson [address] [place] [address] Social History Tobacco Use Types [...] filedocumented in this encounter Care Teams Home Maker Relationship Specialty Start Date End Date Lashawn Cloud MD [address] [place] [address] PCP - General 03/19/23 documented as of this encounter
--- OUTSIDE RECORDS SUMMARY | 2025-09-28 14:17 | XMS_ITS | Clinical Summary ---
Author Organization [facility], Address [address] [place] [address] [place] [address] Phone Care Team Providers Care Test And Turn Up Technician Name Role Phone Lashawn Cloud MD Primary [...] WEEK FOR 4 DOSES. 04/17/20 24 Active cyclobenzaprine (FLEXERIL) 10 MG tablet Take 1 tablet (10 mg total) by mouth 3 (three) times a day if needed for muscle spasms for up to 10 days 42 tablet 06/18/20 24 Active gabapentin (NEURONTIN) 300 MG capsule Take 1 capsule (300 mg total) by mouth in the morning and 1 capsule (300 mg total) in the evening and 1 capsule (300 mg total) before bedtime. 90 capsule 11 11/07/19 25 026 Active atorvastatin (LIPITOR) 20 MG tablet TAKE 1 TABLET (20 MG TOTAL) BY MOUTH ONE TIME EACH DAY 90 tablet 3 11/27/19 25 Active levothyroxine (SYNTHROID, LEVOTHROID) 75 MCG tabletIndication s:Hypothyroidism , not otherwise specified TAKE 1 TABLET (75 MCG TOTAL) BY MOUTH ONE TIME EACH DAY. 90 tablet 3 01/22/20 25 Active losartan (COZAAR) 100 MG tablet Take 1 tablet (100 mg total) by mouth 1 (one) time each day 90 tablet 3 02/26/20 25 Active eplerenone (INSPRA) 50 MG tabletIndication s:Primary aldosteronism (HCC) Take 2 tablets (100 mg total) by mouth in the morning and 2 tablets (100 mg total) in the evening. 360 tablet 3 05/27/20 25 Active dilTIAZem CD (CARDIZEM CD) 360 MG 24 hr capsuleIndicatio ns:Primary aldosteronism (HCC) Take 1 capsule (360 mg total) by mouth 1 (one) time each day 90 capsule 3 07/08/20 25 026 Active labetalol (NORMODYNE) 200 MG tablet Take 2 tablets (400 mg total) by mouth in the morning and 2 tablets (400 mg total) in the evening. 360 tablet 3 07/08/20 25 Active amitriptyline (ELAVIL) 150 MG tablet TAKE 0.5 TABLETS (75 MG TOTAL) BY MOUTH 1 (ONE) TIME EACH DAY IN THE EVENING 45 tablet 3 08/03/20 25 Active potassium citrate 10 MEQ (1080 MG) CR tablet Take 2 tablets (20 mEq total) by mouth in the morning and 2 tablets (20 mEq total) at noon and 2 tablets (20 mEq total) in the evening. Take with meals. Do not crush, chew, or split. 180 tablet 2 09/01/20 25 Active potassium citrate 10 MEQ (1080 MG) CR tablet Take 2 tablets (20 mEq total) by mouth in the morning and 2 tablets (20 mEq total) at noon and 2 tablets (20 mEq total) in the evening. Take with meals. Do not crush, chew, or split.. 180 tablet 2 08/29/20 24 025 Discontin ued(Reord er (does not appear on AVS)) Active Problems Problem Noted Date Diagnosed Date [...] Encounters Date Type Department Care Team Description 09/01/2025 Refill [facility] [address] [place] [address] Kirsten Estrada MA 08/26/2025 Documentation Only [facility] [address] [place] [address] Kirsten Estrada MA 08/20/2025 10:40 AM EST Office Visit [facility] [address] [place] [address] Isaias Randall MD Primary aldosteronism (HCC) (Primary Dx) 08/17/2025 Refill [facility] [address] [place] [address] Kirsten Estrada MA 08/01/2025 Refill [facility] [place], [address] [place] [address] Isaias Randall MD 07/08/2025 9:10 AM EDT Office Visit [facility] [address] [address] Isaias Randall MD Primary aldosteronism (HCC) 07/08/2025 Refill [facility] [place], [address] [address] Kirsten Estrada MA from Last 3 Months Immunizations Immunization Administration [...] 09/01/2019 12:01 PM EST Plan of Treatment Health Maintenance Due Date Last Done Comments Hepatitis B Vaccine (1 of 3 - 19+ 3-dose series) 1996 Pneumococcal Vaccine: Peds ( 0 to 5 Years) and At-Risk Patients (6 to 49 Years) (2 of 2 - PCV) 08/13/2018 08/13/2017 Diabetes: Ophthalmology Exam 07/12/2021 Diabetes: Pedal Pulse Checked 07/12/2021 Diabetes: Sensory Foot Exam 07/12/2021 Diabetes: Visual Foot Exam 07/12/2021 Influenza Vaccine (#1) 2025 Diabetes: Hemoglobin A1C 11/25/2025 025, 08/25/2025, 07/09/2025, Additional history exists Pneumococcal Vaccine: 50+ Years Discontinued 7 Procedures Procedure Name Priority Date/Time Associated Diagnosis Comments MAGNESIUM Routine 07/09/2025 10:49 AM EDT BASIC METABOLIC PANEL Routine 07/09/2025 10:49 AM EDT BASIC METABOLIC PANEL Routine 07/09/2025 10:48 AM EDT Primary aldosteronism (HCC) METANEPHRINES,FRACTI ONATED, PLASMA FREE Routine 07/09/2025 10:48 AM EDT Essential (primary) hypertension CATECHOLAMINES, FRACTIONATED, PLASMA Routine 07/09/2025 10:48 AM EDT Essential (primary) hypertension RENIN ACTIVITY Routine 07/09/2025 10:48 AM EDT Essential (primary) hypertension ALDOSTERONE Routine 07/09/2025 10:48 AM EDT Essential (primary) hypertension HEMOGLOBIN A1C Routine 07/11/2021 4:22 PM EDT Chronic kidney disease, stage 2 (mild) Adrenal hyperplasia (HCC) Edema of lower extremity Hyperlipidemia, not otherwise specified Primary aldosteronism (HCC) Prediabetes from Last 3 Months or Most Recently Relevant to Health Maintenance Results * Magnesium (07/09/2025 10:49 AM EDT) Magnesium 2.0 1.6 - 2.3 mg/dL [facility] 07/09/2025 10:4 9 AM EDT 07/09/2025 Isaias Randall MD LAB BLOOD ORDERABLES Final Re sult [facility] [address] [place] [address] * (ABNORMAL) Basic Metabolic Panel (07/09/2025 10:49 AM EDT) Only the most recent of2 resultswithin the time period is included. Glucose 72 70 - 99 mg/dL [facility] BUN 19 6 - 24 mg/dL [facility] Creatinine 1.60(H) 0.57 - 1.00 mg/dL [facility] eGFR CKD-EPI CR 2020 40(L) >59 mL/min/1.7 3 [facility] BUN/Creatinine Ratio 12 9 - 23 [facility] Sodium 142 134 - 144 mmol/L [facility] Potassium 3.6 3.5 - 5.2 mmol/L [facility] Chloride 103 96 - 106 mmol/L [facility] Bicarbonate (CO2) 22 20 - 29 mmol/L [facility] Calcium 9.9 8.7 - 10.2 mg/dL [facility] 07/09/2025 10:4 9 AM EDT 07/09/2025 Isaias Randall MD LAB BLOOD ORDERABLES Final Re sult [facility] [address] [place] [phone] * Renin Activity, Plasma (07/09/2025 10:48 AM EDT) Renin Activity 1.986 0.167 - 5.380 ng/mL/hr [facility] Blood Venous blood / Unknown 07/09/2025 10:48 AM EDT 07/09/2025 Narrative [facility] - 07/19/2025 6:05 PM EDT Test(s) 127731-Phydu Activity, Plasma was developed and its performance characteristics determined by [facility]. It has not been cleared or approved by the Food and Drug Administration. Isaias Randall MD LAB BLOOD ORDERABLES Final Re sult Performing Organization Address [facility] de Phone Number [facility] [address] [place] [address] * Metanephrines,Fractionated, Plasma Free (07/09/2025 10:48 AM EDT) Normetanephrin e, Pl 184.6 0.0 - 218.9 pg/mL [facility] Metanephrine, Plasma 46.9 0.0 - 88.0 pg/mL [facility] Blood Venous blood / Unknown 07/09/2025 10:48 AM EDT 07/09/2025 Narrative [facility] - 07/19/2025 6:05 PM EDT Test(s) 540937-Psbpuimmkyyalur, Pl; 946524-Omepgpayaqug, Pl was developed and its performance characteristics determined by [facility]. It has not been cleared or approved by the Food and Drug Administration. Isaias Randall MD LAB BLOOD ORDERABLES Final Re sult Performing Organization Address [facility] de Phone Number [facility] [address] [place] [address] * (ABNORMAL) Catecholamines, fractionated, plasma (07/09/2025 10:48 AM EDT) Norepinephrine 700(H) 115 - 524 pg/mL [facility] Epinephrine 34.9 0.0 - 55.4 pg/mL [facility] Dopamine 35.5 0.0 - 36.7 pg/mL [facility] Comment: Catecholamines, Plasma reference intervals based on patient in supine position for at least 20 minutes. Blood Venous blood / Unknown 07/09/2025 10:48 AM EDT 07/09/2025 Narrative [facility] - 07/19/2025 6:05 PM EDT Test(s) [id number]-Vuqksxsarzkpbv; [id number]-Rxoeldzdkgk; [id number]-Ghqnmrlf was developed and its performance characteristics determined by [facility]. It has not been cleared or approved by the Food and Drug Administration. Isaias Randall MD LAB BLOOD ORDERABLES Final Re sult Performing Organization Address City/[facility]/ZIP Co de Phone Number [facility] [address] [place] [phone] * (ABNORMAL) Aldosterone (07/09/2025 10:48 AM EDT) Aldosterone 122.9(H) 0.0 - 30.0 ng/dL [facility] Blood Venous blood / Unknown 07/09/2025 10:48 AM EDT 07/09/2025 Narrative [facility] - 07/19/2025 6:05 PM EDT Test(s) [id number]-Vmfkbphymrr was developed and its performance characteristics determined by [facility]. It has not been cleared or approved by the Food and Drug Administration. Isaias Randall MD LAB BLOOD ORDERABLES Final Re sult Performing Organization Address City/[facility]/ZIP Co de Phone Number [facility] [address] [place] [address] from Last [address] [place] [address] Dual SNP ([id number]) [place] [address] ([id number]) Care Teams Test And Turn Up Technician Relationship Specialty Start Date End Date Lashawn Cloud MD [address] [place] [address] PCP - General 03/19/23
--- OUTSIDE RECORDS SUMMARY | 2025-09-28 14:17 | XMS_ITS | Encounter Summary ---
Author Organization [facility] Address [address] [place] [address] Care Team Providers Care Vessel Captain Name Role Phone Lashawn Montesinos MD Primary Care Prov ider Encounter Details Date Type Department Care Team (Late st Contact Info) Description 08/26/2025 Results Follow-Up Adult Medicine [facility] [address] [place], [place] [phone] Kina Peter PA [address] [place], [place] Social History Tobacco Use Types Packs/Day [...] care for your loved ones. For example, manager child or elderly care for an older [...] Date Recorded What is your living situation? Unrecognized valu e 01/22/2025 Interpersonal Safety Answer Date Record ed Physical Abuse Unrecognized value 08/15/2025 Verbal Abuse Unrecognized value 08/15/2025 Comments No Sex and Gender Information Value Date Recorded Sex Assigned at Female 11/11/2024 9:32 AM EST Legal Sex Female 4:00 PM EST Gender Identity Female 11/11/2024 9:32 AM EST Sexual Orientation Straight 11/11/2024 9: 32 AM EST documented as of this encounter Functional Status * Are you deaf or do you have serious difficulty hearing? Answer Date of Assessment Author No 08/15/2025 6:43 PM EST Atif Nogueira RN * Are you blind or do you have serious difficulty seeing, even when wearing glasses? Answer Date of Assessment Author No 08/15/2025 6:43 PM Atif Becker RN * Do you have serious difficulty walking or climbing stairs? Answer Date of Assessment Author No 08/15/2025 6:43 PM Atif Becker RN * Do you have serious difficulty dressing or bathing? Answer Date of Assessment Author No 08/15/2025 6:43 PM Atif Becker RN * Because of a physical, mental, or emotional condition, do you have serious difficulty doing errandsalone such as visiting the doctor? Answer Date of Assessment Author No 08/15/2025 6:43 PM Atif Becker RN documented as of this encounter Mental Status * Because of a physical, mental, or emotional condition, do you have serious difficulty concentrating, remembering, or making decisions? (5 years old or older) Answer Entry Date Author No 08/15/2025 6:43 PM Atif Becker RN documented in this encounter Plan of Treatment Upcoming Encounters Date Type Department Care Team (Late st Contact Info) Description 10/26/2025 10:15 AM EST Office Visit Orthopedic Surgery [place] [address] [address] Zach Tarango, DP [address] [address] 12/17/2025 1:30 PM EDT Office Visit Bariatric Surgery [facility] [address] [facility] [address] [place] [address] Brody Mart MD [address] [place] [address] 12/21/2025 12:00 PM EDT Office Visit Adult Medicine [address] [phone] Lashawn Montesinos MD [address] [place] [address] 06/17/2026 10:00 AM EDT Office Visit Gastroenterology - [address] [address] Jaycee Bryan, URBAN [address] [address] 07/02/2026 10:30 AM EDT [facility] [address] [phone] documented as of this encounter Visit Diagnoses Not on filedocumented in this encounter Additional Health Concerns Assessment Noted Time PHQ-9 Depression Total Score: 0 02/12/20 10:19 AM EDT documented as of this encounter Care Teams Vessel Captain Relationship Specialty Start Date End Date Lashawn Montesinos MD [address] [place] [phone] PCP - General Internal Medicine 06/06/22 documented as of this encounter
--- OUTSIDE RECORDS SUMMARY | 2025-09-28 14:17 | XMS_ITS | Clinical Summary ---
Author Organization [address] [facility] Address [address] [place] [address] Phone Care Team Providers Care Customer Account Specialist Name Role Phone Lashawn Montesinos MD Primary Care Prov ider Allergies Active Allergy Reactions Criticality Noted Date Comments Amlodipine Besylate Cough Medium 07/22/2013 Lisinopril Cough Medium 06/05/2013 Coughing/bleeding Amlodipine Cough Medium 11/04/2024 Other Other Medium 08/20/2024 INSPRA 07/22/2013 21 - OTHER Hematuria - brand name only that causes this, generic is ok Spironolactone Other Medium 03/11/2022 Medications insulin syringe-needle U-100 0.3 mL 30 gauge x 1/2 syringe 04/20/20 23 Active amitriptyline (ELAVIL) 150 mg tablet Take 0.5 tablets (75 mg total) by mouth at bedtime. 03/16/20 20 Active aspirin 81 mg EC tablet Take 81 mg by mouth daily. Active cloNIDine (CATAPRES) 0.3 mg tablet Take 1 tablet (0.3 mg total) by mouth 3 (three) times a day. 12/20/19 24 Active levETIRAcetam (KEPPRA) 500 mg tablet Take 1 tablet (500 mg total) by mouth 2 (two) times a day. Take with the 1,000 MG for a daily total of 1025 MG daily. 01/14/20 24 Active levETIRAcetam (KEPPRA) 1,000 mg tablet Take 1 tablet (1,000 mg total) by mouth 2 (two) times a day. Active OLANZapine (ZyPREXA) 10 mg tablet Take 2 tablets (20 mg total) by mouth at bedtime. 03/02/20 24 Active prazosin (MINIPRESS) 5 mg capsule Take 2 capsules (10 mg total) by mouth 2 (two) times a day. Active traZODone (DESYREL) 150 mg tablet Take 150 mg by mouth at bedtime. Active venlafaxine XR (EFFEXOR-XR) 150 mg 24 hr capsule TAKE 1 CAPSULE BY MOUTH ONCE A DAY TAKE WITH 75 MG CAPSULE FOR TOTAL DOSE = 225 MG. 01/09/20 24 Active venlafaxine XR (EFFEXOR-XR) 75 mg 24 hr capsule TAKE 1 CAPSULE BY MOUTH EVERY MORNING TAKE WITH 150 MG CAPSULE FOR TOTAL DOSE = 225 MG. 01/09/20 24 Active ziprasidone (GEODON) 80 mg capsule Take 80 mg by mouth 2 times daily (with meals). Prescribed by Dr. Isaias Sheridan Active zolpidem (AMBIEN) 5 mg tablet Take 2 tablets (10 mg total) by mouth at bedtime as needed for sleep. Active benztropine (COGENTIN) 0.5 mg tablet Take 1 tablet (0.5 mg total) by mouth 2 (two) times a day. 10/12/19 25 Active rizatriptan (MAXALT) 10 mg tablet Take 1 tablet (10 mg total) by mouth if needed. 10/23/19 25 Active glucose blood test strip Use to test blood sugar 3 times daily. 300 each 3 12/10/19 25 Active folic acid (FOLVITE) 1 mg tablet TAKE 1 TABLET BY MOUTH EVERY DAY 90 tablet 1 01/10/20 25 Active dilTIAZem CD (CARDIZEM CD) 360 mg 24 hr capsule Take 1 capsule (360 mg total) by mouth 1 (one) time each day. 30 each 3 01/23/20 25 026 Active empagliflozin (Jardiance) 25 mg tablet Take 1 tablet (25 mg total) by mouth 1 (one) time each day in the morning. 90 tablet 3 01/23/20 25 Active labetaloL (NORMODYNE) 200 mg tablet Take 2 tablets (400 mg total) by mouth 2 (two) times a day. 360 each 01/23/20 25 Active gabapentin (NEURONTIN) 300 mg capsule Take 1 capsule (300 mg total) by mouth 2 (two) times a day. 180 each 03/30/20 25 Active blood-glucose sensor (Dexcom G7 Sensor) deviceIndicatio ns:Type 2 diabetes mellitus without complication, without long-term current use of insulin ([facility] V24, [facility] V28) Change sensor every 10 days 3 each 04/29/20 25 Active BD Ultra-Fine Short Pen Needle 31 gauge x 5/16 needle USE DIRECTED FOUR TIMES DAILY 400 each 05/15/20 25 Active cetirizine (ZyrTEC) 10 mg tablet TAKE 1 TABLET BY MOUTH EVERY DAY 90 tablet 06/04/20 25 Active linaCLOtide (Linzess) 290 mcg capsule Take 1 capsule (290 mcg total) by mouth 1 (one) time each day before breakfast. 90 each 06/18/20 25 026 Active pantoprazole (PROTONIX) 40 mg EC tablet Take 1 tablet (40 mg total) by mouth 1 (one) time each day before breakfast. Do not crush, chew, or split. 90 each 06/18/20 25 Active famotidine (PEPCID) 20 mg tablet Take 1 tablet (20 mg total) by mouth 2 (two) times a day. 180 each 06/18/20 25 Active atorvastatin (LIPITOR) 80 mg tablet TAKE 1 TABLET BY MOUTH 1 TIME EACH DAY. 90 tablet 07/16/20 25 Active albuterol HFA (Ventolin HFA) 90 mcg/actuation inhaler Inhale 2 puffs by mouth every 6 (six) hours if needed for wheezing. 6.7 g 07/30/20 25 Active busPIRone (BUSPAR) 30 mg tablet Take 1 tablet (30 mg total) by mouth 2 (two) times a day. Active losartan (Cozaar) 50 mg tablet Take 1 tablet (50 mg total) by mouth 1 (one) time each day. 90 tablet 08/24/20 25 026 Active levothyroxine (SYNTHROID, LEVOTHROID) 75 mcg tabletIndicatio ns:Hypothyroidi sm, unspecified type Take 1 tablet (75 mcg total) by mouth 1 (one) time each day. 90 each 1 08/26/20 25 Active Mounjaro 10 mg/0.5 mL injection 08/24/20 Active insulin aspart (NovoLOG Flexpen U-100 Insulin) 100 unit/mL (3 mL) injection pen Inject 25 Units under the skin 3 (three) times a day before meals. Inject 25 Units into the skin 3 times daily (before meals). Please dispense 90 day supply 08/31/20 25 Active insulin degludec (Tresiba FlexTouch U-200) 200 unit/mL (3 mL) CONCENTRATED injection pen Inject 90 Units under the skin at bedtime. 08/31/20 25 Active metoclopramide (REGLAN) 10 mg tablet Take 1 tablet (10 mg total) by mouth 4 (four) times a day (before meals and nightly). 360 each 3 09/28/20 25 026 Active insulin aspart (NovoLOG Flexpen U-100 Insulin) 100 unit/mL (3 mL) injection pen Inject 30 Units into the skin 3 times daily (before meals). Please dispense 90 day supply 45 mL 11 12/10/19 25 025 Discontinued(R eorder) insulin degludec (Tresiba FlexTouch U-200) 200 unit/mL (3 mL) CONCENTRATED injection pen INJECT 100 UNITS INTO THE SKIN AT BEDTIME. 45 mL 1 07/08/20 25 025 Discontinued magnesium oxide (MAG-OX) 400 mg (241.3 elemental magnesium) tablet Take 0.5 tablets (200 mg total) by mouth 2 (two) times a day for 3 days. 3 each 08/25/20 25 025 Discontinued(T herapy completed) insulin degludec (Tresiba FlexTouch U-200) 200 unit/mL (3 mL) CONCENTRATED injection pen Inject 90 Units under the skin at bedtime. INJECT 100 UNITS INTO THE SKIN AT BEDTIME. 08/31/20 25 025 Discontinued Active Problems Problem Noted Date Diagnosed Date Major depressive disorder, recurrent, moderate 1 10/24/2024 Acute on chronic renal failure 08/15/2025 Adrenal hyperplasia 08/20/2024 Constipation 08/20/2024 Esophageal dysmotility 08/20/2024 Hiatal hernia 08/20/2024 Primary aldosteronism 08/20/2024 Overview (08/20/2024): nephaj ofelia Hypothyroid 08/20/2024 Assessment & Plan (03/30/2025 7:58 [...] (BMI) of 50.0 to 59.9 in adult 08/20/2024 Uterine leiomyoma 03/05/2024 Abnormal EKG 05/09/2022 Hypomagnesemia 05/09/2022 Palpitations 05/09/2022 SBO (small bowel obstruction) 05/09/2022 Tremor 05/09/2022 Urinary incontinence 02/20/2022 Abnormal breast biopsy 12/02/2021 Overview (08/20/2024): Intraductal papilloma with florid epithelial hyperplasia, surgical consultation to evaluate for excision advised. [facility] nurse navigator notified to facilitate. Seizure disorder 10/12/2021 Type 2 diabetes mellitus 09/25/2018 Assessment & Plan (03/30/2025 7:58 PM [...] to be possibly functional Gout 07/22/2013 Hyperaldosteronism 07/22/2013 Migraine headache 07/22/2013 Multinodular goiter 07/22/2013 PCOS (polycystic ovarian syndrome) 07/22/2013 Overview (08/20/2024): Irregular periods Pseudotumor cerebri 07/22/2013 Overview (08/20/2024): Shunt 2000 HTN (hypertension) 06/05/2013 Overview (08/20/2024): Last Assessment [...] to direct LDL; Future Hemoglobin A1c; Future Resolved Problems Problem Noted Date Diagnosed Date Resolved Date Acute respiratory failure with hypoxia 05/09/2022 07/30/2025 Encounters Date Type Department Care Team Description 08/31/2025 11:00 AM EST Office Visit Adult Medicine [address] [phone] Katy Stein PA Hypomagnesemia (Primary Dx); Hypokalemia; Primary hypertension; Prolonged Q-T interval on ECG; Seizure disorder (CMS/HCC V24, CMS/HCC V28); Acute renal failure superimposed on stage 4 chronic kidney disease, unspecified acute renal failure type (CMS/HCC V24, CMS/HCC V28); Type 2 diabetes mellitus without complication, without long-term current use of insulin ([facility] V24, [facility] V28) 08/31/2025 - 09/01/2025 12:49 AM EST [facility] Emergency [address] [place] [phone] Discharge Disposition: ED Dismiss - Never Arrived 08/26/2025 Telephone Adult [address] [phone] Lashawn Amaral MD 08/26/2025 Results Follow-Up Adult [address] [phone] Kina Peter PA 08/25/2025 4:42 PM EST - 08/25/2025 7:34 PM EST [facility] Emergency [address] [place] [phone] Tye Shipley MD Goebel, Mathew, MD Hypomagnesemia (Primary Dx); Hypokalemia Discharge Disposition: Home or Self Care 08/25/2025 10:20 AM EST Lab Draw [address] Acute renal failure superimposed on stage 4 chronic kidney disease, unspecified acute renal failure type (CMS/HCC V24, CMS/HCC V28); Type 2 diabetes mellitus without complication, without long-term current use of insulin ([facility] V24, CMS/[facility] V28); Hypercholesteremia; Hypomagnesemia; Acute renal failure, unspecified acute renal failure type ([facility] V24); Other primary hyperaldosteronism ([facility] V24); Primary hypertension 08/25/2025 Telephone Adult [address] [phone] Claribel Mora RN 08/24/2025 11:00 AM EST Office Visit Adult [address] [phone] Kina Peter PA Hospital discharge follow-up (Primary Dx); Acute renal failure superimposed on stage 4 chronic kidney disease, unspecified acute renal failure type ([facility] V24, [facility] V28); Type 2 diabetes mellitus without complication, without long-term current use of insulin ([facility] V24, [facility] V28); Primary hypertension; Hypercholesteremia; Class 3 severe obesity due to excess calories with serious comorbidity and body mass index (BMI) of 50.0 to 59.9 in adult ([facility] V24, [facility] V28); Major depressive disorder, recurrent, moderate ([facility] V24, [facility] V28); Witnessed seizure ([facility] V24, [facility] V28) 08/18/2025 Telephone Adult [address] [phone] Lashawn Amaral MD 08/15/2025 3:40 PM EST - 08/18/2025 1:58 PM [facility] Hospital Encounter [facility] Medical Surgical Unit [address] [place] [phone] Olive Sánchez MD Ziebro, John, MD Jones, Christopher, MD Bell, Alistair A, MD Seralathan, Manikandan, MD Breakthrough seizure ([facility] V24, [facility] V28) (Primary Dx); Acute renal failure, unspecified acute renal failure type ([facility] V24); Elevated troponin Discharge Disposition: Home or Self Care 08/13/2025 Telephone Bariatric Surgery [address] [phone] Brody Mart MD 07/31/2025 Telephone Adult Medicine [address] [phone] Lashawn Amaral MD 07/30/2025 1:12 PM EDT - 07/30/2025 5:34 PM EDT Emergency [facility] Emergency [address] [place] [phone] Dwight Leal MD Accelerated hypertension (Primary Dx); Nonintractable headache, unspecified chronicity pattern, unspecified headache type Discharge Disposition: Home or Self Care 07/30/2025 11:30 AM EDT Office Visit Adult [address] [phone] Kina Peter PA Abnormal EKG (Primary Dx); Shortness of breath; Elevated blood pressure reading; Primary hypertension; Type 2 diabetes mellitus without complication, without long-term current use of insulin (CMS/HCC V24, CMS/HCC V28); Class 3 severe obesity due to excess calories with serious comorbidity and body mass index (BMI) of 50.0 to 59.9 in adult (CMS/HCC V24, CMS/HCC V28); Seizure disorder (CMS/HCC V24, CMS/HCC V28) 07/17/2025 10:30 AM EDT Telemedicine Endocrinology [address] [phone] Vahid Kemp MD Type 2 diabetes mellitus without complication, without long-term current use of insulin (CMS/HCC V24, CMS/HCC V28) (Primary Dx) 07/09/2025 Results Follow-Up Endocrinology [address] [phone] Vahid Kemp MD 07/08/2025 Telephone Adult Medicine [address] [phone] Chery Chavez MA 07/07/2025 Telephone Bariatric Surgery [address] [phone] Brody Mart MD 07/06/2025 Results Follow-Up Adult Medicine [address] [phone] Lashawn Amaral MD 07/02/2025 11:15 AM EDT Office Visit [address] [phone] Vahid Kemp MD Type 2 diabetes mellitus without complication, without long-term current use of insulin (CMS/HCC V24, CMS/HCC V28) (Primary Dx) 07/02/[address] [phone] Vahid Kemp MD 07/01/2025 3:02 PM EDT - 07/01/2025 11:59 PM EDT Hospital Encounter [facility] Ultrasound [address] [place] [phone] Breast calcifications; Breast asymmetry Discharge Disposition: Home or Self Care 07/01/2025 2:00 PM EDT - 07/01/2025 11:59 PM EDT Hospital Encounter [facility] [address] [place] [phone] Breast calcifications; Breast asymmetry Discharge Disposition: Home or Self Care 07/01/2025 10:45 AM EDT Office Visit Orthopedic Surgery [facility] [address] [facility] [address] [place] [phone] Zach Tarango DPM Controlled type 2 diabetes with neuropathy (CMS/HCC V24, CMS/HCC V28) (Primary Dx); Venous insufficiency; Lumbosacral radiculopathy; Metatarsalgia of left foot; Hammertoes of both feet from Last 3 Months Immunizations Immunization Administration Dates Next Due Pneumococcal conjugate 20 va lent (Prevnar 20, PCV 20) 2mo and older 10/12/2022 Pneumococcal polysaccharide 23 valent (Pneumovax 23) 2yo and older 08/13/2017 Tdap Tetanus diptheria acell ular pertussis (Boostrix; Adacel) 7yo and older 06/11/2019 Surgical History Surgery Date Site/Laterality Comments OTHER SURGICAL HISTORY PROCEDURE: ---- OTHER ----; COMMENT: [employer] shunt, 2000, 2001 OTHER SURGICAL HISTORY PROCEDURE: ---- OTHER ----; COMMENT: l ankle surgery MULTIPLE TOOTH EXTRACTIONS PROCEDURE: HISTORICAL DENTAL EXTRACTION OTHER SURGICAL HISTORY PROCEDURE: HISTORICAL EAR SURGERY; COMMENT: tubes HYSTERECTOMY PROCEDURE: IA VAGINAL HYSTERECTOMY UTERUS 250 GM/<; COMMENT: still has ovaries Medical History Medical History Date Comments HTN (hypertension) 06/05/2013 DX:HTN (hyper tension) Hypercholesteremia 06/05/2013 DX:Hyperchole steremia LENNIE (iron deficiency anemia) DX: LENNIE (iron deficiency anemia) Adrenal hyperplasia ([facility] V24) DX:Adrenal hyperplasia (HCC) Primary aldosteronism ([facility] V24) DX:Primary aldosteronism (HCC); COMMENT: betsy goodman Hypothyroid DX:Hypothyroid Esophageal dysmotility DX:Esopha geal dysmotility Hiatal hernia DX:Hiatal hernia Constipation DX:Constipation Anxiety state DX:Anxiety state Depressive disorder DX:Depressiv e disorder Diabetes mellitus type 2, co ntrolled, with complications ([facility] V24, [facility] V28) DX:Diabetes mellitus type 2, controlled, with complications ([facility]) GERD (gastroesophageal reflux disease) DX:GERD (gastroesophageal reflux disease) Gastroparesis DX:Gastroparesis Esophageal dysmotility DX:Esopha geal dysmotility Gastroparesis DX:Gastroparesis Occult blood in stools DX:Occult blood in stools Encounter for diagnostic col onoscopy due to change in bowel habits DX:Encounter for diagnostic colonoscopy due to change in bowel habits CVA (cerebral vascular accid ent) ([facility] V24, [facility] V28) Seizures ([facility] V24, [facility] V28) Family History Medical History Relation Name [...] care for your loved ones. For example, children's institution attendant or elderly care for an older adult? [...] Sign Reading Time Taken Comments Blood Pressure 168/92 08/31/2025 11:12 AM EST Pulse 72 08/31/2025 10:52 AM EST Temperature 36.6 C (97.9 F) 08/31/2025 10:52 AM EST Respiratory Rate 13 08/31/2025 10:52 AM EST Oxygen Saturation 97% 08/31/2025 10:52 AM EST Inhaled Oxygen Concentration - - Weight 132 kg (290 lb) 08/31/2025 10:52 AM EST Height 160 cm (5' 3 ) 08/31/2025 10:52 AM EST Body Mass Index 51.37 08/31/2025 10:52 AM EST Plan of Treatment Upcoming Encounters Date Type Department Care Team (Late st Contact Info) Description 10/26/2025 10:15 AM EST Office Visit Orthopedic Surgery [place] [phone] [facility] [address] [place] [phone] Zach Tarango, DPM 175 [facility] 250 [place] [address] 12/17/2025 1:30 PM EDT Office Visit Bariatric Surgery [facility] 175 [facility] [address] [place] [phone] Brody Mart MD [address] [place] [phone] 12/21/2025 12:00 PM EDT Office Visit Adult Medicine [address] [phone] Lashawn Montesinos MD [address] [place] [address] 06/17/2026 10:00 AM EDT Office Visit Gastroenterology - [address] [phone] Jaycee Bryan, URBAN [address] [address] 07/02/2026 10:30 AM EDT [facility]ointment [facility] [address] [place] [phone] Health Maintenance Due Date Last Done Comments Drug Screen 1977 Non-Opioid Controlled Substance Agreement 1977 Hepatitis B Vaccines (1 of 3 - 19+ 3-dose series) 1996 Colorectal Cancer Screening: Colonoscopy 11/17/2025 11/17/2024, 11/12/2024 Social Influencers of Health Screening 01/22/2026 01/22/2025 Diabetes: Blood Sugar Control Test (HGBA1C) 02/22/2026 08/25/2025, 07/09/2025, 10/07/2024, Additional history exists Diabetes: Annual Urine Albumin-Creatinine Ratio (uACR) 03/12/2026 03/12/2025, 06/16/2024 Influenza Vaccine (#1) 2026 Postp oned from 06/08/2025 (Patient Refused) Breast Cancer Screening 07/01/2026 07/01/20, 12/23/2024, 06/02/2024, Additional history exists Diabetes: Annual Foot Exam 07/30/2026 07/30/2025, Diabetes: Annual GFR (Glomerular Filtration Rate) 08/25/2026 08/25/2025, 08/25/2025, 08/18/2025, Additional history exists Hypertension/CHF/CAD Annual BMP Blood Test 08/25/2026 08/25/2025, 08/25/2025, 08/18/2025, Additional history exists Diabetes: Annual Retina Eye Exam 09/09/2026 09/09/2025 DTaP,Tdap,and Td Vaccines (2 - Td or Tdap) 06/11/2029 06/11/2019 Cholesterol Screening (Lipid Panel) 08/25/2030 08/25/2025, 10/07/2024, 06/16/2024, Additional history exists Medicare Annual Wellness Visit 2042 12/11/2022 Postponed from 12/12/2023 (Not clinically appropriate to address at this time) RSV Immunization Adult Patients (1 - 1-dose 75+ series) 2052 HIV Screening Completed 11/07/2019 Hepatitis C Screening Completed 11/07/2019 Pneumococcal Vaccine: Pediatrics (0 to 5 Years) and At-Risk Patients (6 to 49 Years) Completed 10/12/2022, 08/13/2017 Depression Screening Completed 02/11/2025, 03/05/20 24 COVID-19 Vaccine Discontinued HIB Vaccines Aged Out No longer eligi [...] Procedure Name Priority Date/Time Associated Diagnosis Comments EXTERNAL DIABETIC RETINA EYE EXAM Routine 09/09/2025 2:15 PM EST ECG 12-LEAD Routine 08/31/2025 12:27 PM EST Hypomagnesemia Hypokalemia Primary hypertension ECG 12-LEAD STAT 08/25/2025 5:42 PM EST CBC WITH AUTO DIFFERENTIAL STAT 08/25/2025 4:58 PM EST MAGNESIUM STAT 08/25/2025 4:58 PM EST COMPREHENSIVE METABOLIC PANEL STAT 08/25/2025 4:58 PM EST CBC AND DIFFERENTIAL STAT 08/25/2025 4:58 PM EST CBC WITH AUTO DIFFERENTIAL Routine 08/25/2025 10:38 AM EST Acute renal failure superimposed on stage 4 chronic kidney disease, unspecified acute renal failure type (CMS/HCC V24, CMS/HCC V28) LIPID PANEL WITH REFLEX TO DIRECT LDL Routine 08/25/2025 10:38 AM EST Type 2 diabetes mellitus without complication, without long-term current use of insulin (CMS/HCC V24, CMS/HCC V28) Hypercholesteremia Hypomagnesemia COMPREHENSIVE METABOLIC PANEL Routine 08/25/2025 10:38 AM EST Type 2 diabetes mellitus without complication, without long-term current use of insulin (CMS/HCC V24, CMS/HCC V28) Hypercholesteremia Hypomagnesemia HEMOGLOBIN A1C Routine 08/25/2025 10:38 AM EST Type 2 diabetes mellitus without complication, without long-term current use of insulin (CMS/HCC V24, CMS/HCC V28) Hypercholesteremia Hypomagnesemia CBC AND DIFFERENTIAL Routine 08/25/2025 10:38 AM EST Acute renal failure superimposed on stage 4 chronic kidney disease, unspecified acute renal failure type (CMS/HCC V24, CMS/HCC V28) POCT GLUCOSE BLOOD Routine 08/18/2025 11 :25 AM EST BASIC METABOLIC PANEL Routine 08/18/2025 8:29 AM EST MAGNESIUM Routine 08/18/2025 8:29 AM EST PHOSPHORUS Routine 08/18/2025 8:29 AM EST LAVENDER - EDTA Routine 08/18/2025 8:28 AM EST EXTRA TUBES Routine 08/18/2025 8:28 AM EST POCT GLUCOSE BLOOD Routine 08/18/2025 7: 59 AM EST POCT GLUCOSE BLOOD Routine 08/17/2025 8: 10 PM EST POCT GLUCOSE BLOOD Routine 08/17/2025 4: 38 PM EST POCT GLUCOSE BLOOD Routine 08/17/2025 1: 08 PM EST POCT GLUCOSE BLOOD Routine 08/17/2025 9: 01 AM EST TRANSTHORACIC ECHOCARDIOGRAM (TTE) COMPLETE Routine 08/17/2025 8:11 AM EST Elevated troponin LAVENDER - EDTA Routine 08/17/2025 5:33 AM EST EXTRA TUBES Routine 08/17/2025 5:33 AM EST BASIC METABOLIC PANEL Routine 08/17/2025 5:33 AM EST EOSINOPHILS URINE STAT 08/17/2025 5:3 2 AM EST PROTEIN AND CREATININE WITH RATIO, URINE STAT 08/17/2025 5:32 AM EST SODIUM, URINE, RANDOM STAT 08/17/2025 5:32 AM EST BE URINE CULTURE TUBE STAT 08/17/20 25 5:32 AM EST URINALYSIS WITH REFLEX MICROSCOPIC AND CULTURE STAT 08/17/2025 5:32 AM EST URINALYSIS WITH REFLEX MICROSCOPIC AND CULTURE STAT 08/17/2025 5:32 AM EST CULTURE URINE STAT 08/17/2025 5:32 AM EST ECG ANNOTATED 08/17/2025 POCT GLUCOSE BLOOD Routine 08/16/2025 7: 43 PM EST POCT GLUCOSE BLOOD Routine 08/16/2025 3: 20 PM EST POCT GLUCOSE BLOOD Routine 08/16/2025 11 :31 AM EST POCT GLUCOSE BLOOD Routine 08/16/2025 8: 51 AM EST US RETROPERITONEAL COMPLETE Routine 08/16/2025 8:43 AM EST CBC WITH AUTO DIFFERENTIAL Routine 08/16/2025 5:35 AM EST CBC AND DIFFERENTIAL Routine 08/16/2025 5:35 AM EST BASIC METABOLIC PANEL Routine 08/16/2025 5:35 AM EST CREATINE KINASE Routine 08/16/2025 5:35 AM EST ECG 12-LEAD STAT 08/16/2025 1:25 AM EST POCT GLUCOSE BLOOD Routine 08/15/2025 11 :26 PM EST IA CRITICAL CARE EACH ADDITIONAL 30 MINUTES Routine 08/15/2025 9:22 PM EST TROPONIN I HIGH SENSITIVITY STAT 08/15/2025 7:23 PM EST ECG 12-LEAD Routine 08/15/2025 6:05 PM EST TRIIODOTHYRONINE FREE Routine 08/15/2025 5:37 PM EST FREE THYROXINE WITH REFLEX TO FREE TRIIODOTHYRONINE Routine 08/15/2025 5:37 PM EST THYROID STIMULATING HORMONE WITH REFLEX TO FREE T4 AND FREE T3 Add-On 08/15/2025 5:37 PM EST HCG, SERUM, QUALITATIVE STAT 08/15/20 5:37 PM EST B-TYPE NATRIURETIC PEPTIDE STAT 08/15/2025 5:37 PM EST CREATINE KINASE STAT 08/15/2025 5:37 PM EST TROPONIN I HIGH SENSITIVITY STAT 08/15/2025 5:37 PM EST MAGNESIUM STAT 08/15/2025 5:37 PM EST LACTATE STAT 08/15/2025 5:[address] HEAD WO CONTRAST STAT 08/15/2025 5 :26 PM EST CBC WITH AUTO DIFFERENTIAL STAT 08/15/2025 3:55 PM EST CBC AND DIFFERENTIAL STAT 08/15/2025 3:55 PM EST COMPREHENSIVE METABOLIC PANEL STAT 08/15/2025 3:55 PM EST ECG ANNOTATED 07/31/2025 TROPONIN I HIGH SENSITIVITY Timed 07/30/2025 3:59 PM EDT XR CHEST 1 VIEW STAT 07/30/2025 3:[address] HEAD WO CONTRAST STAT 07/30/2025 2 :56 PM EDT ECG 12-LEAD STAT 07/30/2025 2:36 PM EDT B-TYPE NATRIURETIC PEPTIDE STAT 07/30/2025 2:30 PM EDT CBC WITH AUTO DIFFERENTIAL STAT 07/30/2025 2:30 PM EDT TROPONIN I HIGH SENSITIVITY Timed 07/30/2025 2:30 PM EDT CBC AND DIFFERENTIAL STAT 07/30/2025 2:30 PM EDT COMPREHENSIVE METABOLIC PANEL STAT 07/30/2025 2:30 PM EDT ECG 12-LEAD Routine 07/30/2025 12:43 PM EDT Shortness of breath Primary hypertension Type 2 diabetes mellitus without complication, without long-term current use of insulin ([facility]/HCC V24, CMS/HCC V28) BUN Routine 07/09/2025 10:07 AM EDT Type 2 diabetes mellitus without complication, without long-term current use of insulin (CMS/HCC V24, CMS/[facility] V28) CREATININE, SERUM Routine 07/09/2025 10: 07 AM EDT Type 2 diabetes mellitus without complication, without long-term current use of insulin (CMS/[facility] V24, CMS/[facility] V28) HEMOGLOBIN A1C Routine 07/09/2025 10:07 AM EDT Type 2 diabetes mellitus without complication, without long-term current use of insulin ([facility] V24, CMS/[facility] V28) MG MAMMO DIGITAL DIAGNOSTIC W GARY BILAT Routine 07/01/2025 3:21 PM EDT Breast calcifications Breast asymmetry US BREAST LIMITED RIGHT Routine 07/01/20 3:18 PM EDT Breast calcifications Breast asymmetry MICROALBUMIN CREATININE URINE RATIO Routine 03/12/2025 3:24 PM EDT Type 2 diabetes mellitus without complication, without long-term current use of insulin ([facility] V24, CMS/[facility] V28) COLONOSCOPY Routine 11/17/2024 4:06 PM EST Blood in stool HM DEPRESSION SCREENING Routine 03/05/2024 DIABETES FOOT EXAM Routine 03/05/2024 HEPATITIS C SCREENING Routine 11/07/2019 HIV SCREENING Routine 11/07/2019 from Last 3 Months or Most Recently Relevant to Health Maintenance Results * External Diabetic Retina Eye Exam Report (09/09/2025 2:15 PM EST) Anatomical Region Laterality Modality Ultrasound us Historical Provider IMG US PROCEDURES Final R esult * ECG 12 lead (08/31/2025 12:27 PM EST) Only the most recent of6 resultswithin the time period is included. Katy Villegas PA - 08/31/2025 12:27 PM EST Rate 71 bpm. Sinus rhythm. Possible LAE. LVH. T wave inversion in III, V1-V4. T wave flattening in V5 and V6. This was also seen during EKG on 08/25/2025 in the ER. QT 481. QTc 523. Rate 71 bpm. Sinus rhythm. Possible LAE. LVH. T wave inversion in III, V1-V4. T wave flattening in V5 and V6. This was also seen during EKG on 08/25/2025 in the ER. QT 466. QTc 507. Katy ESTRELLA ECG ORDERABLES Final Result * (ABNORMAL) CBC auto differential (08/25/2025 4:58 PM EST) Only the most recent of5 resultswithin the time period is included. WBC 9.5 4.8 - 10.8 K/mcL LAB HEMETOLOGY METHOD 08/25/2025 5:06 PM [facility] RBC 4.30 3.80 - 4.80 M/mcL LAB HEMETOLOGY METHOD 08/25/2025 5:06 PM [facility] Hemoglobin 11.6 11.5 - 16.0 g/dL LAB HEMETOLOGY METHOD 08/25/2025 5:06 PM [facility] Hematocrit 34.9(L) 35.0 - 47.0 % LAB HEMETOLOGY METHOD 08/25/2025 5:06 PM [facility] MCV 82.1 79.0 - 98.0 FL LAB HEMETOLOGY METHOD 08/25/2025 5:06 PM [facility] MCH 27.3 27.0 - 32.0 pcg LAB HEMETOLOGY METHOD 08/25/2025 5:06 PM [facility] MCHC 33.2 32.0 - 37.0 g/dL LAB HEMETOLOGY METHOD 08/25/2025 5:06 PM [facility] RDW 13.0 11.0 - 15.0 % LAB HEMETOLOGY METHOD 08/25/2025 5:06 PM [facility] Platelets 358 130 - 400 K/mcL LAB HEMETOLOGY METHOD 08/25/2025 5:06 PM [facility] MPV 10.7 7.0 - 11.0 FL LAB HEMETOLOGY METHOD 08/25/2025 5:06 PM [facility] NRBC 0.0 <1.0 % LAB HEMETOLOGY METHOD 08/25/2025 5:06 PM [facility] NRBC Absolute 0.00 <0.10 K/mcL LAB HEMETOLOGY METHOD 08/25/2025 5:06 PM [facility] Neutrophils Relative 72.0 % LAB HEMETOLOGY METHOD 08/25/2025 5:06 PM [facility] Lymphocytes Relative 17.8 % LAB HEMETOLOGY METHOD 08/25/2025 5:06 PM [facility] Monocytes Relative 4.2 % LAB HEMETOLOGY METHOD 08/25/2025 5:06 PM [facility] Eosinophils Relative 5.2 % LAB HEMETOLOGY METHOD 08/25/2025 5:06 PM [facility] Basophils Relative 0.3 % LAB HEMETOLOGY METHOD 08/25/2025 5:06 PM [facility] Immature Granulocytes Relative 0.5 % LAB HEMETOLOGY METHOD 08/25/2025 5:06 PM [facility] Neutrophils Absolute 6.82 1.50 - 7.00 K/mcL LAB HEMETOLOGY METHOD 08/25/2025 5:06 PM EST [facility] Lymphocytes Absolute 1.69 1.00 - 5.00 K/[facility] LAB HEMETOLOGY METHOD 08/25/2025 5:06 PM EST [facility] Monocytes Absolute 0.40 0.20 - 1.00 K/[facility] LAB HEMETOLOGY METHOD 08/25/2025 5:06 PM EST [facility] Eosinophils Absolute 0.49 0.00 - 0.50 K/[facility] LAB HEMETOLOGY METHOD 08/25/2025 5:06 PM EST [facility] Basophils Absolute 0.03 0.00 - 0.20 K/[facility] LAB HEMETOLOGY METHOD 08/25/2025 5:06 PM EST [facility] Immature Granulocytes Absolute 0.05(H) 0.00 - 0.03 K/[facility] LAB HEMETOLOGY METHOD 08/25/2025 5:06 PM EST [facility] Blood Venous blood specimen / Unknown Venipuncture / Unknown 08/25/2025 4:58 PM EST 08/25/2025 5:01 PM EST us Tye Shipley MD LAB BLOOD ORDERABLES Final Result [facility] [address] [place] [address], * (ABNORMAL) Magnesium (08/25/2025 4:58 PM EST) Only the most recent of3 resultswithin the time period is included. Magnesium 1.5(L) 1.9 - 2.6 mg/dL 08/25/2025 5:38 PM EST [facility] Blood Venous blood specimen / Unknown Venipuncture / Unknown 08/25/2025 4:58 PM EST 08/25/2025 5:01 PM EST us Tye Shipley MD LAB BLOOD ORDERABLES Final Result [facility] [address] [place] [address], * (ABNORMAL) Comprehensive Metabolic Panel (CMP) (08/25/2025 4:58 PM EST) Only the most recent of4 resultswithin the time period is included. Sodium 143 133 - 145 mmol/L 08/25/2025 5:38 PM [facility] Potassium 3.1(L) 3.5 - 5.5 mmol/L 08/25/2025 5:38 PM [facility] Chloride 101 96 - 110 mmol/L 08/25/2025 5:38 PM [facility] CO2 30 21 - 32 mmol/L 08/25/2025 5:38 PM [facility] Anion Gap 12(H) 3 - 11 08/25/2025 5:38 PM [facility] Glucose 109(H) 70 - 100 mg/dL 08/25/2025 5:38 PM [facility] BUN 15 5 - 25 mg/dL 08/25/2025 5:38 PM [facility] Creatinine 1.58(H) 0.50 - 1.10 mg/dL 08/25/2025 5:38 PM [facility] eGFR 40(L) >=60 mL/min/1. 73m2 08/25/2025 5:38 PM [facility] Comment:Calculation based on the Chronic Kidney Disease Epidemiology Collaboration (CKD-EPI) equation refit without adjustment for race. BUN/Creatinine Ratio 9.5 08/25/2025 5:38 PM [facility] Calcium 9.1 8.5 - 10.5 mg/dL 08/25/2025 5:38 PM [facility] AST (SGOT) 19 10 - 42 unit/L 08/25/2025 5:38 PM [facility] ALT (SGPT) 25 10 - 60 unit/L 08/25/2025 5:38 PM [facility] Alkaline Phosphatase 98 42 - 121 unit/L 08/25/2025 5:38 PM [facility] Total Protein 6.0 6.0 - 8.0 g/dL 08/25/2025 5:38 PM [facility] Albumin 4.2 3.2 - 5.0 g/dL 08/25/2025 5:38 PM [facility] Total Bilirubin 0.2 0.0 - 1.4 mg/dL 08/25/2025 5:38 PM [facility] Blood Venous blood specimen / Unknown Venipuncture / Unknown 08/25/2025 4:58 PM EST 08/25/2025 5:01 PM EST us Tye Shipley MD LAB BLOOD ORDERABLES Final Result [facility] [address] [place] [address], * Lipid panel with reflex to direct LDL (08/25/2025 10:38 AM EST) Cholesterol 150 0 - 200 mg/dL 08/25/2025 1:28 PM [facility] Triglycerides 112 0 - 150 mg/dL 08/25/2025 1:28 PM [facility] HDL 40 >=40 mg/dL 08/25/2025 1:28 PM [facility] LDL Calculated 88 0 - 100 mg/dL 08/25/2025 1:28 PM [facility] Comment:Estimated LDL Calcul ated using equation: Total cholesterol - HDL cholesterol - (Triglycerides/5) VLDL Cholesterol Reinier 22.4 mg/dL 08/25/2025 1:28 PM EST [facility] Non HDL Chol. (LDL+VLDL) 110 <145 mg/dL 08/25/2025 1:28 PM EST [facility] Chol/HDL Ratio 3.8 0.0 - 4.4 08/25/2025 1:28 PM EST [facility] Blood Venous blood specimen / Unknown Venipuncture / Unknown 08/25/2025 10:38 AM EST 08/25/2025 10:38 AM EST Lashawn Montesinos MD LAB BLOOD ORDERABL ES Final Result [facility] [address] [place] [address], [place] [phone] * Hemoglobin A1c (08/25/2025 10:38 AM EST) Only the most recent of2 resultswithin the time period is included. Hemoglobin A1C 6.2 <6.5 % LAB CHEMISTRY METHOD 08/25/2025 9:49 PM EST [facility] Mean Bld Glu Estim. 131 mg/dL LAB CHEMISTRY METHOD 08/25/2025 9:49 PM EST [facility] Blood Venous blood specimen / Unknown Venipuncture / Unknown 08/25/2025 10:38 AM EST 08/25/2025 10:38 AM EST Lashawn Montesinos MD LAB BLOOD ORDERABL ES Final Result [facility] [address] [place] [address], [place] [phone] * (ABNORMAL) POCT Glucose, blood (08/18/2025 11:25 AM EST) Only the most recent of11 resultswithin the time period is included. Glucose POCT 158(H) 70 - 100 mg/dL 08/18/2025 11:25 AM EST [facility] Blood Capillary blood specimen / Unknown 08/18/2025 11:25 AM EST 08/18/2025 11:27 AM EST us Brian Son MD LAB POINT OF CA RE TEST DOCKED DEVICE UNSOLICITED RESULTS Final Result [facility] [address] [place] [address], [place] [phone] * Phosphorus (08/18/2025 8:29 AM EST) [facility] Phosphorus 3.1 2.5 - 4.5 mg/dL LAB CHEMISTRY METHOD 08/18/2025 9:38 AM EST [facility] Blood Venous blood specimen / Unknown Venipuncture / Unknown 08/18/2025 8:29 AM EST 08/18/2025 9:03 AM EST Brian Son MD LAB BLOOD ORDERABLES Fi nal Result [facility] [address] [place] [address], [place] [phone] * (ABNORMAL) Basic metabolic panel (08/18/2025 8:29 AM EST) Only the most recent of3 resultswithin the time period is included. [facility] Sodium 142 133 - 145 mmol/L LAB CHEMISTRY METHOD 08/18/2025 9:38 AM EST [facility] Potassium 3.4(L) 3.5 - 5.5 mmol/L LAB CHEMISTRY METHOD 08/18/2025 9:38 AM EST [facility] Chloride 107 96 - 110 mmol/L LAB CHEMISTRY METHOD 08/18/2025 9:38 AM EST [facility] CO2 31 21 - 32 mmol/L LAB CHEMISTRY METHOD 08/18/2025 9:38 AM [facility] Anion Gap 4 3 - 11 LAB CHEMISTRY METHOD 08/18/2025 9:38 AM [facility] Glucose 118(H) 70 - 100 mg/dL LAB CHEMISTRY METHOD 08/18/2025 9:38 AM [facility] BUN 28(H) 5 - 25 mg/dL LAB CHEMISTRY METHOD 08/18/2025 9:38 AM [facility] Creatinine 1.84(H) 0.50 - 1.10 mg/dL LAB CHEMISTRY METHOD 08/18/2025 9:38 AM [facility] eGFR 34(L) >=60 mL/min/1. 73m2 LAB CHEMISTRY METHOD 08/18/2025 9:38 AM [facility] Comment:Calculation based on the Chronic Kidney Disease Epidemiology Collaboration (CKD-EPI) equation refit without adjustment for race. BUN/Creatinine Ratio 15.2 LAB CHEMISTRY METHOD 08/18/2025 9:38 AM [facility] Calcium 8.6 8.5 - 10.5 mg/dL LAB CHEMISTRY METHOD 08/18/2025 9:38 AM [facility] Blood Venous blood specimen / Unknown Venipuncture / Unknown 08/18/2025 8:29 AM EST 08/18/2025 9:03 AM EST Brian Son MD LAB BLOOD ORDERABLES Fi nal Result [facility] [address] [place] [address], * Lavender tube (08/18/2025 8:28 AM EST) Only the most recent of2 resultswithin the time period is included. Extra Tube Hold for add-ons. 08/18/2025 11:01 AM [facility] Comment:Auto resulted. Blood Venous blood specimen / Unknown Venipuncture / Unknown 08/18/2025 8:28 AM EST 08/18/2025 9:04 AM EST us Brian Son MD LAB BLOOD ORDERABLES Fi nal Result [facility] ([facility] [address] [place] [address], [place] [phone] * (ABNORMAL) TRANSTHORACIC ECHOCARDIOGRAM (TTE) COMPLETE (08/17/2025 8:11 AM EST) Left Atrium Minor Hephzibah 5.8 cm CV PACS Left Atrium Major Hephzibah 5.5 cm CV PACS LA Area Sys (A2C) 19 cm2 CV PACS LA Area Sys (A4C) 20 cm2 CV PACS LA Volume (BP) 55 mL CV PACS Aortic Sinus Valsalva 3.2 cm CV PACS Ascending Aorta 3.6 cm CV PACS IVSD 1.2(A) 0.6 - 0.9 cm CV PACS LVIDD 4.7 3.8 - 5.2 cm CV PACS LVIDS 3.1 2.2 - 3.5 cm CV PACS LVOT Diameter 2.1 cm CV PACS LVPWD 1.3(A) 0.6 - 0.9 cm CV PACS MV E' Tissue Velocity Lateral 8 cm/s CV PACS MV E' Tissue Velocity Septal 8 cm/s CV PACS GLS -18.6 % CV PACS LVOT Area 3.5 cm2 CV PACS MV Deceleration [place] 5.7 m/s2 CV PACS E Wave Deceleration Time 182 119 - 242 ms CV PACS MV PHT 53 ms CV PACS MV Peak A Reji 0.90 m/s CV PACS MV Peak E Reji 1.00 m/s CV PACS MV Area PHT 4.2 cm2 CV PACS PV Acceleration Time 116 ms CV PACS PV Acceleration Time 116 ms CV PACS RV S' 18 cm/s CV PACS TAPSE 24 mm CV PACS E/E' Ratio Septal 13 CV PACS E/E' Ratio Averaged 13 CV PACS Relative Wall Thickness ratio 0.55(A) 0.22 - 0.42 CV PACS FS 34 % CV PACS LV Mass 2D 225(A) 66 - 150 g CV PACS E/A Ratio 1.1 0.8 - 2.0 CV PACS E/E' Ratio Lateral 13 CV PACS BSA 2.4 m2 CV PACS LA Volume Index (BP) 22 mL/m2 CV PACS LVIDD Index 2.09 cm/m2 CV PACS LVIDS Index 1.38 cm/m2 CV PACS LV Mass Index 2D 100(A) 44 - 88 g/m2 CV PACS Ascending Aorta Index 1.60 cm/m2 CV PACS Est. RA Pressure 3 mmHg CV PACS RV Free Wall Peak S' 18 cm/s CV PACS Anatomical Region Laterality Modality Ultrasound Narrative 08/17/2025 10:55 AM EST Left ventricle cavity size is normal. Left ventricle mild hypertrophy. No regional LV wall motion abnormalities noted. Left ventricular systolic function is in the normal range with an ejection fraction of 60-65%. Right ventricle cavity is normal. Right ventricular systolic function is normal. The atria are normal in size. No hemodynamically significant valve disease. See remainder of the report for additional findings. Left Ventricle Left ventricle cavity size is normal. There is mild hypertrophy. Systolic function is normal with an ejection fraction of 60-65%. There are no regional LV wall motion abnormalities. Indeterminate diastolic function. Right Ventricle Right ventricle cavity appears normal. Systolic function is normal. Left Atrium Left atrium cavity size is normal. Right Atrium Right atrium cavity is normal. IVC/SVC Inferior vena cava structure is normal. Mitral Valve The leaflets are mildly thickened. There is no regurgitation or stenosis. Tricuspid Valve Tricuspid valve structure is normal. There is no regurgitation or stenosis. Aortic Valve The aortic valve is trileaflet. There is no regurgitation or stenosis. Pulmonic Valve Visualized portions of the pulmonic valve appear normal. There is no regurgitation or stenosis. Ascending Aorta The aorta appears normal in size. Pericardium Pericardium appears normal. There is no pericardial effusion. Study Details Overall the study quality was adequate. Additional technique includes myocardial strain. Selvin ESTRELLA CV ECHO PROCEDURES Final Result * (ABNORMAL) Urinalysis with reflex microscopic and culture (08/17/2025 5:32 AM EST) Specific [place] Urine 1.015 1.003 - 1.030 LAB URINALYSIS - AUTOMATED METHOD 08/17/2025 7:33 AM [facility] pH, Urine 5.5 5.0 - 8.0 pH LAB URINALYSIS - AUTOMATED METHOD 08/17/2025 7:33 AM [facility] Leukocytes, Urine Small(A) Negative LAB URINALYSIS - AUTOMATED METHOD 08/17/2025 7:33 AM [facility] Nitrite, Urine Negative Negative LAB URINALYSIS - AUTOMATED METHOD 08/17/2025 7:33 AM [facility] Protein, Urine 30(A) <=Trace mg/dL LAB URINALYSIS - AUTOMATED METHOD 08/17/2025 7:33 AM [facility] Glucose, Urine 500(A) Negative mg/dL LAB URINALYSIS - AUTOMATED METHOD 08/17/2025 7:33 AM [facility] Ketones, Urine Negative Negative mg/dL LAB URINALYSIS - AUTOMATED METHOD 08/17/2025 7:33 AM [facility] Urobilinogen , Urine 0.2 0.2 - 1.0 mg/dL LAB URINALYSIS - AUTOMATED METHOD 08/17/2025 7:33 AM [facility] Bilirubin, Urine Negative Negative LAB URINALYSIS - AUTOMATED METHOD 08/17/2025 7:33 AM [facility] Blood, Urine Negative Negative LAB URINALYSIS - AUTOMATED METHOD 08/17/2025 7:33 AM [facility] RBC, Urine 5(H) 0 - 4 /HPF 08/17/2025 7:33 AM [facility] WBC, Urine 10(H) 0 - 4 /HPF 08/17/2025 7:33 AM [facility] Squamous Epithelial, Urine 10 0 - 60 /LPF 08/17/2025 7:33 AM [facility] Crystals, Urine Light Calcium Oxalate crystals. /LPF 08/17/2025 7:33 AM EST [facility] Bacteria, Urine Few(A) Negative /HPF 08/17/2025 7:33 AM [facility] Urine Urine specimen obtained by clean catch procedure / Unknown Non-blood Collection / Unknown 08/17/2025 5:32 AM EST 08/17/2025 6:53 AM EST Olive Sánchez MD LAB URINE ORDERABLES Final Res ult [facility] [address] [place] [address], [place] [phone] * Be urine culture tube (08/17/2025 5:32 AM EST) Extra Tube Hold for add-ons. 08/17/2025 8:01 AM [facility] Comment:Auto resulted. Urine Urine specimen obtained by clean catch procedure / Unknown Non-blood Collection / Unknown 08/17/2025 5:32 AM EST 08/17/2025 6:53 AM EST Olive Sánchez MD LAB URINE ORDERABLES Final Res ult [facility] [address] [place] [address], [place] [phone] * Eosinophils, urine (08/17/2025 5:32 AM EST) Eosinophil % Urine 0 0 % 08/17/2025 8:26 AM [facility] WBC, Urine 10 /HPF 08/17/2025 8:26 AM [facility] Urine Urine specimen obtained by clean catch procedure / Unknown Non-blood Collection / Unknown 08/17/2025 5:32 AM EST 08/17/2025 6:53 AM EST us Balwinder Santamaria MD LAB URINE ORDERABLES Final Result Performing Organization Address [facility]/ZIP Co de Phone Number [facility] [address] [place] [address], [place] [phone] * (ABNORMAL) Protein and creatinine with ratio, urine (08/17/2025 5:32 AM EST) Protein, Urine 42 mg/dL LAB CHEMISTRY METHOD 08/17/2025 7:27 AM [facility] Prot/Creat, Ur 0.31(H) <=0.20 mg/mg creat LAB CHEMISTRY METHOD 08/17/2025 7:27 AM EST [facility] Creatinine, Urine 137.0 mg/dL LAB CHEMISTRY METHOD 08/17/2025 7:27 AM EST [facility] Urine Urine specimen obtained by clean catch procedure / Unknown Non-blood Collection / Unknown 08/17/2025 5:32 AM EST 08/17/2025 6:54 AM EST us Balwinder Santamaria MD LAB URINE ORDERABLES Final Result Performing Organization Address [facility] Co de Phone Number [facility] [address] [place] [address], [place] [phone] * Sodium, urine, random (08/17/2025 5:32 AM EST) Sodium, Ur 6 mmol/L LAB CHEMISTRY METHOD 08/17/2025 7:27 AM EST [facility] Urine Urine specimen obtained by clean catch procedure / Unknown Non-blood Collection / Unknown 08/17/2025 5:32 AM EST 08/17/2025 6:54 AM EST us Balwinder Santamaria MD LAB URINE ORDERABLES Final Result Performing Organization Address City/[facility]/ZIP Co de Phone Number [facility] [address] [place] [address], [place] [phone] * (ABNORMAL) Culture urine (08/17/2025 5:32 AM EST) Culture, Urine >=100,000 CFU/mL Escherichia coli(A) ELISE 08/19/2025 10:33 AM EST [facility] Urine Urine specimen obtained by clean catch procedure / Unknown Non-blood Collection / Unknown 08/17/2025 5:32 AM EST 08/17/2025 7:33 AM EST Narrative Organism Antibiotic Method Susceptibility Escherichia coli Amoxicillin/Clavulanate ELISE <=2 ug/ml: Susceptible Escherichia coli Ampicillin/Sulbactam ELISE <=2 ug/ml: Susceptible Escherichia coli Piperacillin/Tazobactam ELISE <=4 ug/ml: Susceptible Escherichia coli Cefazolin (Urine) ELISE <=1 ug/ml: Susceptible Escherichia coli Cefoxitin ELISE <=4 ug/ml: Susceptible Escherichia coli Ceftazidime ELISE <=0.5 ug/ml: Susceptible Escherichia coli Ceftriaxone ELISE <=0.25 ug/ml: Susceptible Escherichia coli Cefepime ELISE <=0.12 ug/ml: Susceptible Escherichia coli Meropenem ELISE <=0.25 ug/ml: Susceptible Escherichia coli Amikacin ELISE 2 ug/ml: Susceptible Escherichia coli Gentamicin ELISE <=1 ug/ml: Susceptible Escherichia coli Ciprofloxacin ELISE <=0.06 ug/ml: Susceptible Escherichia coli Levofloxacin ELISE <=0.12 ug/ml: Susceptible Escherichia coli Nitrofurantoin ELISE <=16 ug/ml: Susceptible Escherichia coli Trimethoprim/Sulfamethoxazole ELISE <=20 ug/ml: Susceptible Olive Sánchez MD LAB MICROBIOLOGY - GENERAL ORD ERABLES Final Result [facility] [address] [place] [address], [place] [phone] * ECG-Annotated (08/17/2025) Only the most recent of2 resultswithin the time period is included. us Provider Onbase ECG ORDERABLES Final Result * US Retroperitoneal Complete (08/16/2025 8:43 AM EST) Anatomical Region Laterality Modality Body Ultrasound 08/16/2025 9:22 AM EST Impressions 08/16/2025 9:23 AM EST No hydronephrosis -------- FINAL REPORT -------- Dictated By: Sirisha Kruse Dictated Date: 08/16/2025 09:22 ET Assigned Physician: Sirisha Kruse Reviewed and Electronically Signed By: Sirisha Kruse Signed Date: 08/16/2025 09:23 ET Workstation ID: [id number] Transcribed By: Self Edit Transcribed Date: 08/16/2025 09:22 ET Narrative 08/16/2025 9:23 AM EST PROCEDURE: US RETROPERITONEAL COMPLETE INDICATION: acute renal failure TECHNIQUE: 2-D be scale, color Doppler imaging of the kidneys. COMPARISON: No priors available. FINDINGS: Right kidney: The right kidney is normal in size, shape, configuration, and echogenicity. There is no hydronephrosis or nephrolithiasis. The right kidney measures 12.2cm. Left kidney: The left kidney is normal in size, shape, configuration, and echogenicity. There is no hydronephrosis or nephrolithiasis. The left kidney measures 12cm. Unremarkable urinary bladder. Procedure Note Sirisha Kruse MD - 08/16/2025 PROCEDURE: US RETROPERITONEAL COMPLETE INDICATION: acute renal failure TECHNIQUE: 2-D be scale, color Doppler imaging of the kidneys. COMPARISON: No priors available. FINDINGS: Right kidney: The right kidney is normal in size, shape, configuration,and echogenicity. There is no hydronephrosis or nephrolithiasis. The rightkidney measures 12.2cm. Left kidney: The left kidney is normal in size, shape, configuration, andechogenicity. There is no hydronephrosis or nephrolithiasis. The leftkidney measures 12cm. Unremarkable urinary bladder. IMPRESSION: No hydronephrosis -------- FINAL REPORT -------- Dictated By: Sirisha Kruse Dictated Date: 08/16/2025 09:22 ET Assigned Physician: Sirisha Kruse Reviewed and Electronically Signed By: Kruse, Manu Signed Date: 08/16/2025 09:23 ET Workstation ID: [id number] Transcribed By: Self Edit Transcribed Date: 08/16/2025 09:22 ET us Balwinder Santamaria MD IMG US PROCEDURES Final Res ult * (ABNORMAL) Creatine kinase (08/16/2025 5:35 AM EST) Only the most recent of2 resultswithin the time period is included. Total CK 542(H) 22 - 269 unit/L LAB CHEMISTRY METHOD 08/16/2025 7:09 AM EST [facility] Blood Venous blood specimen / Unknown Venipuncture / Unknown 08/16/2025 5:35 AM EST 08/16/2025 6:12 AM EST us Balwinder Santamaria MD LAB BLOOD ORDERABLES Final Result [facility] [address] [place] [address], * [place] CRITICAL CARE EACH ADDITIONAL 30 MINUTES (08/15/2025 9:22 PM EST) Narrative Fahad Ward MD - 08/15/2025 9:22 PM EST Fahad Ward MD 08/15/2025 9:22 PM Critical Care Performed by: Fahad Ward MD Authorized by: Fahad Ward MD Critical care provider statement: Critical care time (minutes): 31 Total face to face critical care time (minutes): 31 Critical care time was exclusive of: Separately billable procedures and treating other patients and teaching time Critical care was necessary to treat or prevent imminent or life-threatening deterioration of the following conditions: 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 Critical care was time spent personally by me on the following activities: Development of treatment plan with patient or surrogate, discussions with primary provider, evaluation of patient's response to treatment, examination of patient, obtaining history from patient or surrogate, ordering and performing treatments and interventions, ordering and review of laboratory studies, ordering and review of radiographic studies, re-evaluation of patient's condition, pulse oximetry and review of old charts Face to face critical care was time spent personally by me on the following activities: Development of treatment plan with patient or surrogate, discussions with primary provider, evaluation of patient's response to treatment, examination of patient, obtaining history from patient or surrogate, ordering and review of laboratory studies, ordering and performing treatments and interventions, ordering and review of radiographic studies, pulse oximetry, re-evaluation of patient's condition and review of old charts I assumed direction of critical care for this patient from another provider in my specialty: yes Care discussed with: admitting provider us Fahad Ward MD IN CLINIC/BEDSIDE ORDERABLES Fin al Result * (ABNORMAL) Troponin I high sensitivity (08/15/2025 7:23 PM EST) Only the most recent of4 resultswithin the time period is included. Pathologist [facility] High Sensitivity Troponin I 142(HH) <=54 ng/L LAB CHEMISTRY METHOD 08/15/2025 8:46 PM EST [facility] Blood Venous blood specimen / Unknown Venipuncture / Unknown 08/15/2025 7:23 PM EST 08/15/2025 7:54 PM EST Narrative [facility] - 08/15/2025 8:46 PM EST High levels of biotin in samples may falsely decrease hsTroponin values. Use caution when interpreting hsTroponin results in patients taking biotin who exhibit renal impairment (eGFR <60) or in patients taking more than 20 mg/day of biotin. us Fahad Ward MD LAB BLOOD ORDERABLES Final Resul t [facility] [address] [place] [address], * (ABNORMAL) Thyroid stimulating hormone with reflex to free t4 and free t3 (08/15/2025 5:37 PM EST) [facility] TSH 4.20(H) 0.40 - 4.00 mcIU/mL LAB CHEMISTRY METHOD 08/15/2025 9:55 PM EST [facility] Blood Venous blood specimen / Unknown Venipuncture / Unknown 08/15/2025 5:37 PM EST 08/15/2025 5:55 PM EST us Balwinder Santamaria MD LAB BLOOD ORDERABLES Final Result Performing Organization Address [facility] Co de Phone Number [facility] [address] [place] [address], [place] [phone] * Free thyroxine with reflex to free triiodothyronine (08/15/2025 5:37 PM EST) Free T4 1.19 0.70 - 1.80 ng/dL LAB CHEMISTRY METHOD 08/15/2025 10:23 PM EST [facility] Blood Venous blood specimen / Unknown Venipuncture / Unknown 08/15/2025 5:37 PM EST 08/15/2025 5:55 PM EST Balwinder Santamaria MD LAB BLOOD ORDERABLES Final Result Performing Organization Address [facility] Co de Phone Number [facility] [address] [place] [address], [place] [phone] * hCG Qualitative (08/15/2025 5:37 PM EST) [facility] hCG Qual Negative Negative 08/15/2025 6:18 PM EST [facility] Blood Venous blood specimen / Unknown Venipuncture / Unknown 08/15/2025 5:37 PM EST 08/15/2025 5:55 PM EST Olive Sánchez MD LAB BLOOD ORDERABLES Final Res ult Performing Organization Address City/[facility]/ZIP Co de Phone Number [facility] [address] [place] [address], [place] [phone] * Triiodothyronine free (08/15/2025 5:37 PM EST) T3, Free 315 230 - 420 pcg/dL LAB CHEMISTRY METHOD 08/15/2025 10:53 PM EST [facility] Blood Venous blood specimen / Unknown Venipuncture / Unknown 08/15/2025 5:37 PM EST 08/15/2025 5:55 PM EST Balwinder Santamaria MD LAB BLOOD ORDERABLES Final Result Performing Organization Address City/[facility]/ZIP Co de Phone Number [facility] [address] [place] [address], [place] [phone] * B-Type Natriuretic Peptide (BNP) (08/15/2025 5:37 PM EST) Only the most recent of2 resultswithin the time period is included. BNP 27 <=100 pcg/mL LAB CHEMISTRY METHOD 08/15/2025 6:27 PM EST [facility] Blood Venous blood specimen / Unknown Venipuncture / Unknown 08/15/2025 5:37 PM EST 08/15/2025 5:55 PM EST us Olive Sánchez MD LAB BLOOD ORDERABLES Final Res ult Performing Organization Address City/[facility]/ZIP Co de Phone Number [facility] [address] [place] [address], [place] [phone] * Lactate (08/15/2025 5:37 PM EST) Lactate 2.0 0.4 - 2.0 mmol/L LAB CHEMISTRY METHOD 08/15/2025 6:21 PM EST [facility] Blood Venous blood specimen / Unknown Venipuncture / Unknown 08/15/2025 5:37 PM EST 08/15/2025 5:55 PM EST us Olive Sánchez MD LAB BLOOD ORDERABLES Final Res ult Performing Organization Address City/[facility]/ZIP Co de Phone Number [facility] [address] [place] [address], [place] [phone] * CT Head wo Contrast (08/15/2025 5:26 PM EST) Only the most recent of2 resultswithin the time period is included. Anatomical Region Laterality Modality Head and Neck Computed Tomogra phy 08/15/2025 5:49 PM EST Impressions 08/15/2025 5:49 PM EST Impression: 1. No acute intracranial abnormalities. This document has been electronically signed by: Dequan Mariee MD on 08/15/2025 17:49:17 Narrative 08/15/2025 5:49 PM EST INDICATION: Seizure CT head without contrast Comparison: 07/30/2025 Findings: No intracranial mass, midline shift, hydrocephalus, or acute hemorrhage. No CT evidence of acute ischemia. Stable right frontal approach ventriculostomy catheter, tip overlying left lateral ventricle. Visualized paranasal sinuses and mastoid air cells normal. Orbits unremarkable. No skull fracture Procedure Note Dequan Mariee MD - 08/15/2025 INDICATION: Seizure CT head without contrast Comparison: 07/30/2025 Findings: No intracranial mass, midline shift, hydrocephalus, or acute hemorrhage. No CT evidence of acute ischemia. Stable right frontal approach ventriculostomy catheter, tip overlying left lateral ventricle. Visualized paranasal sinuses and mastoid air cells normal. Orbits unremarkable. No skull fracture IMPRESSION: Impression: 1. No acute intracranial abnormalities. This document has been electronically signed by: Dequan Mariee MD on 08/15/2025 17:49:17 Olive Sánchez MD IMG CT PROCEDURES Final Result * XR Chest 1 View (07/30/2025 3:36 PM EDT) Anatomical Region Laterality Modality Body Radiographic Leslie ging 07/30/2025 4:44 PM EDT Impressions 07/30/2025 4:45 PM EDT FINDINGS/IMPRESSION: Hypoventilatory examination with crowding of bronchovascular structures. Superimposed mild congestion considered. PRODUCE SORTER shunt over the right chest wall. No acute osseous abnormality. -------- FINAL REPORT -------- Dictated By: Sirisha Kruse Dictated Date: 07/30/2025 16:44 ET Assigned Physician: Sirisha Kruse Reviewed and Electronically Signed By: Sirisha Kruse Signed Date: 07/30/2025 16:45 ET Workstation ID: [id number] Transcribed By: Self Edit Transcribed Date: 07/30/2025 16:44 ET Narrative 07/30/2025 4:45 PM EDT XR CHEST 1 VIEW INDICATION: sob TECHNIQUE: XR CHEST 1 VIEW COMPARISON: None Procedure Note Sirisha Kruse MD - 07/30/2025 XR CHEST 1 VIEW INDICATION: sob TECHNIQUE: XR CHEST 1 VIEW COMPARISON: None IMPRESSION: FINDINGS/IMPRESSION: Hypoventilatory examination with crowding ofbronchovascular structures. Superimposed mild congestion considered. VPshunt over the right chest wall. No acute osseous abnormality. -------- FINAL REPORT -------- Dictated By: Sirisha Kruse Dictated Date: 07/30/2025 16:44 ET Assigned Physician: Sirisha Kruse Reviewed and Electronically Signed By: Sirisha Kruse Signed Date: 07/30/2025 16:45 ET Workstation ID: [id number] Transcribed By: Self Edit Transcribed Date: 07/30/2025 16:44 ET us Dwight Leal MD IMG XR PROCEDURES Final Res ult * (ABNORMAL) Creatinine (07/09/2025 10:07 AM EDT) Creatinine 1.63(H) 0.50 - 1.10 mg/dL LAB CHEMISTRY METHOD 07/09/2025 11:46 AM EDT [facility] eGFR 39(L) >=60 mL/min/1. 73m2 LAB CHEMISTRY METHOD 07/09/2025 11:46 AM EDT [facility] Comment:Calculation based on the Chronic Kidney Disease Epidemiology Collaboration (CKD-EPI) equation refit without adjustment for race. Blood Venous blood specimen / Unknown Venipuncture / Unknown 07/09/2025 10:07 AM EDT 07/09/2025 10:40 AM EDT us Vahid Kemp MD LAB BLOOD ORDERABLES Final Resul t Performing Organization Address [facility]/ZIP Co de Phone Number [facility] [address] [place] [address], [place] [phone] * BUN (07/09/2025 10:07 AM EDT) BUN 19 5 - 25 mg/dL LAB CHEMISTRY METHOD 07/09/2025 11:46 AM EDT [facility] Blood Venous blood specimen / Unknown Venipuncture / Unknown 07/09/2025 10:07 AM EDT 07/09/2025 10:40 AM EDT Vahid Kemp MD LAB BLOOD ORDERABLES Final Resul t Performing Organization Address [facility] Co de Phone Number [facility] [address] [place] [address], [place] [phone] * MG Mammo Digital Diagnostic w Gary bilat (07/01/2025 3:21 PM EDT) Anatomical Region Laterality Modality Breast Bilateral Mammography 07/01/2025 3:42 PM EDT Impressions 07/01/2025 3:49 PM EDT No suspicious interval change. Bilateral breast masses. Previous biopsy each breast. One year of stability of solid right breast mass. Recommend documentation of stability for 2 years. Recommend bilateral diagnostic mammography in 12 months. Recommend targeted right breast ultrasound in 12 months. Findings and recommendations were reviewed with the patient at the time of the exam. ASSESSMENT: BI-RADS 3: PROBABLY BENIGN RECOMMENDATION(S): 1: Follow-up diagnostic mammogram BILATERAL in 1 year. Recommend targeted right breast ultrasound in one year. [facility] [address], [address] -------- FINAL REPORT -------- Dictated By: Stefan Arndt Dictated Date: 07/01/2025 15:42 ET Assigned Physician: Stefan Arndt Reviewed and Electronically Signed By: Stefan Arndt Signed Date: 07/01/2025 15:49 ET Workstation ID: [id number] Transcribed By: Self Edit Transcribed Date: 07/01/2025 15:42 ET Narrative 07/01/2025 3:49 PM EDT EXAM: DIAGNOSTIC MAMMOGRAPHY, BILATERAL ULTRASOUND: DIAGNOSTIC ULTRASOUND, UNILATERAL RIGHT HISTORY: Right breast mass. Probably benign calcifications left breast. Evaluate for interval changes. COMPARISON: 07/01/25, 12/23/24, 06/26/24, 06/06/24, 06/02/24, 04/18/23, 07/17/22, 10/21/21, 09/16/20, 11/21/17 TECHNIQUE: Synthesized CC and MLO projections of each breast. Tomosynthesis of each breast in the CC and MLO projections. ADDITIONAL IMAGING: Spot magnified views of the left breast and multiple projections. High-frequency linear transducer ultrasound of the right breast targeted to the area(s) of clinical concern. Computer-aided detection was employed with the [employer] 3-D. TISSUE DENSITY: There are scattered areas of fibroglandular density. (BI-RADS category B) FINDINGS: MAMMOGRAPHY: RIGHT BREAST: There is a circumscribed oval mass in the 6 o'clock position 5 cm from the right nipple. No short interval change. There is a smooth equal density small oval mass at the site of biopsy site marker in the outer right breast. There are some unchanged small additional circumscribed equal density masses. There are a few calcifications in the upper outer right breast which appear similar to previous. No new suspicious right breast finding. LEFT BREAST: There is a circumscribed oval equal density mass with 2 associated biopsy site markers. No suspicious interval change. There are several round calcifications in the 3 o'clock region. No short interval changes. No new suspicious left breast findings ULTRASOUND: RIGHT BREAST 6 o'clock position, 5 cm from right nipple Circumscribed oval hypoechoic solid mass with long axis parallel. No suspicious posterior features. No suspicious color signal. 07/01/25-1.5 cm 12/23/24-1.5 cm 06/06/24-1.5 cm Procedure Note Stefan Arndt MD - 07/01/2025 EXAM: DIAGNOSTIC MAMMOGRAPHY, BILATERAL ULTRASOUND: DIAGNOSTIC ULTRASOUND, UNILATERAL RIGHT HISTORY: Right breast mass. Probably benign calcifications leftbreast. Evaluate for interval changes. COMPARISON: 07/01/25, 12/23/24, 06/26/24, 06/06/24, 06/02/24, 04/18/23,07/17/22, 10/21/21, 09/16/20, 11/21/17 TECHNIQUE: Synthesized CC and MLO projections of each breast.Tomosynthesis of each breast in the CC and MLO projections. ADDITIONAL IMAGING: Spot magnified views of the left breast and multipleprojections. High-frequency linear transducer ultrasound of the right breast targetedto the area(s) of clinical concern. Computer-aided detection was employed with the [employer] 3-D. TISSUE DENSITY: There are scattered areas of fibroglandular density.(BI-RADS category B) FINDINGS: MAMMOGRAPHY: RIGHT BREAST: There is a circumscribed oval mass in the 6 o'clock position 5 cm from theright nipple. No short interval change. There is a smooth equal density small oval mass at the site of biopsy sitemarker in the outer right breast. There are some unchanged small additional circumscribed equal densitymasses. There are a few calcifications in the upper outer right breast whichappear similar to previous. No new suspicious right breast finding. LEFT BREAST: There is a circumscribed oval equal density mass with 2 associated biopsysite markers. No suspicious interval change. There are several round calcifications in the 3 o'clock region. No shortinterval changes. No new suspicious left breast findings ULTRASOUND: RIGHT BREAST 6 o'clock position, 5 cm from right nipple Circumscribed oval hypoechoic solid mass with long axis parallel. Nosuspicious posterior features. No suspicious color signal. 07/01/25-1.5 cm 12/23/24-1.5 cm 06/06/24-1.5 cm IMPRESSION: No suspicious interval change. Bilateral breast masses. Previous biopsyeach breast. One year of stability of solid right breast mass. Recommend documentation of stability for 2 years. Recommend bilateral diagnostic mammography in 12 months. Recommendtargeted right breast ultrasound in 12 months. Findings and recommendations were reviewed with the patient at the time ofthe exam. ASSESSMENT: BI-RADS 3: PROBABLY BENIGN RECOMMENDATION(S): 1: Follow-up diagnostic mammogram BILATERAL in 1 year. Recommend targeted right breast ultrasound in one year. [facility]amm[facility] location: [facility] at [address], [address] -------- FINAL REPORT -------- Dictated By: Stefan Arndt Dictated Date: 07/01/2025 15:42 ET Assigned Physician: Stefan Arndt Reviewed and Electronically Signed By: Stefan Arndt Signed Date: 07/01/2025 15:49 ET Workstation ID: [id number] Transcribed By: Self Edit Transcribed Date: 07/01/2025 15:42 ET us Lashawn Montesinos MD IMG BI PROCEDURES Final Result * US Breast Limited Right (07/01/2025 3:18 PM EDT) Anatomical Region Laterality Modality Breast Right Ultrasound 07/01/2025 3:42 PM EDT Impressions 07/01/2025 3:49 PM EDT No suspicious interval change. Bilateral breast masses. Previous biopsy each breast. One year of stability of solid right breast mass. Recommend documentation of stability for 2 years. Recommend bilateral diagnostic mammography in 12 months. Recommend targeted right breast ultrasound in 12 months. Findings and recommendations were reviewed with the patient at the time of the exam. ASSESSMENT: BI-RADS 3: PROBABLY BENIGN RECOMMENDATION(S): 1: Follow-up diagnostic mammogram BILATERAL in 1 year. Recommend targeted right breast ultrasound in one year. Mammography location: [facility] at [address], [address] -------- FINAL REPORT -------- Dictated By: Stefan Arndt Dictated Date: 07/01/2025 15:42 ET Assigned Physician: Stefan Arndt Reviewed and Electronically Signed By: Stefan Arndt Signed Date: 07/01/2025 15:49 ET Workstation ID: [id number] Transcribed By: Self Edit Transcribed Date: 07/01/2025 15:42 ET Narrative 07/01/2025 3:49 PM EDT EXAM: DIAGNOSTIC MAMMOGRAPHY, BILATERAL ULTRASOUND: DIAGNOSTIC ULTRASOUND, UNILATERAL RIGHT HISTORY: Right breast mass. Probably benign calcifications left breast. Evaluate for interval changes. COMPARISON: 07/01/25, 12/23/24, 06/26/24, 06/06/24, 06/02/24, 04/18/23, 07/17/22, 10/21/21, 09/16/20, 11/21/17 TECHNIQUE: Synthesized CC and MLO projections of each breast. Tomosynthesis of each breast in the CC and MLO projections. ADDITIONAL IMAGING: Spot magnified views of the left breast and multiple projections. High-frequency linear transducer ultrasound of the right breast targeted to the area(s) of clinical concern. Computer-aided detection was employed with the [employer] 3-D. TISSUE DENSITY: There are scattered areas of fibroglandular density. (BI-RADS category B) FINDINGS: MAMMOGRAPHY: RIGHT BREAST: There is a circumscribed oval mass in the 6 o'clock position 5 cm from the right nipple. No short interval change. There is a smooth equal density small oval mass at the site of biopsy site marker in the outer right breast. There are some unchanged small additional circumscribed equal density masses. There are a few calcifications in the upper outer right breast which appear similar to previous. No new suspicious right breast finding. LEFT BREAST: There is a circumscribed oval equal density mass with 2 associated biopsy site markers. No suspicious interval change. There are several round calcifications in the 3 o'clock region. No short interval changes. No new suspicious left breast findings ULTRASOUND: RIGHT BREAST 6 o'clock position, 5 cm from right nipple Circumscribed oval hypoechoic solid mass with long axis parallel. No suspicious posterior features. No suspicious color signal. 07/01/25-1.5 cm 12/23/24-1.5 cm 06/06/24-1.5 cm Procedure Note Stefan Arndt MD - 07/01/2025 EXAM: DIAGNOSTIC MAMMOGRAPHY, BILATERAL ULTRASOUND: DIAGNOSTIC ULTRASOUND, UNILATERAL RIGHT HISTORY: Right breast mass. Probably benign calcifications leftbreast. Evaluate for interval changes. COMPARISON: 07/01/25, 12/23/24, 06/26/24, 06/06/24, 06/02/24, 04/18/23,07/17/22, 10/21/21, 09/16/20, 11/21/17 TECHNIQUE: Synthesized CC and MLO projections of each breast.Tomosynthesis of each breast in the CC and MLO projections. ADDITIONAL IMAGING: Spot magnified views of the left breast and multipleprojections. High-frequency linear transducer ultrasound of the right breast targetedto the area(s) of clinical concern. Computer-aided detection was employed with the [employer] 3-D. TISSUE DENSITY: There are scattered areas of fibroglandular density.(BI-RADS category B) FINDINGS: MAMMOGRAPHY: RIGHT BREAST: There is a circumscribed oval mass in the 6 o'clock position 5 cm from theright nipple. No short interval change. There is a smooth equal density small oval mass at the site of biopsy sitemarker in the outer right breast. There are some unchanged small additional circumscribed equal densitymasses. There are a few calcifications in the upper outer right breast whichappear similar to previous. No new suspicious right breast finding. LEFT BREAST: There is a circumscribed oval equal density mass with 2 associated biopsysite markers. No suspicious interval change. There are several round calcifications in the 3 o'clock region. No shortinterval changes. No new suspicious left breast findings ULTRASOUND: RIGHT BREAST 6 o'clock position, 5 cm from right nipple Circumscribed oval hypoechoic solid mass with long axis parallel. Nosuspicious posterior features. No suspicious color signal. 07/01/-1.5 cm 12/23/-1.5 cm 06/06/-1.5 cm IMPRESSION: No suspicious interval change. Bilateral breast masses. Previous biopsyeach breast. One year of stability of solid right breast mass. Recommend documentation of stability for 2 years. Recommend bilateral diagnostic mammography in 12 months. Recommendtargeted right breast ultrasound in 12 months. Findings and recommendations were reviewed with the patient at the time ofthe exam. ASSESSMENT: BI-RADS 3: PROBABLY BENIGN RECOMMENDATION(S): 1: Follow-up diagnostic mammogram BILATERAL in 1 year. Recommend targeted right breast ultrasound in one year. [facility] [address], [address] -------- FINAL REPORT -------- Dictated By: Stefan Arndt Dictated Date: 07/01/2025 15:42 ET Assigned Physician: Stefan Arndt Reviewed and Electronically Signed By: Stefan Arndt Signed Date: 07/01/2025 15:49 ET Workstation ID: [id number] Transcribed By: Self Edit Transcribed Date: 07/01/2025 15:42 ET Lashawn Montesinos MD [facility] PROCEDURES Final Result * (ABNORMAL) Microalbumin creatinine urine ratio (03/12/2025 3:24 PM EDT) Creatinine, Urine 230.0 mg/dL LAB CHEMISTRY METHOD 03/12/2025 5:44 PM EDT [facility] Microalb, Ur 56.6(H) 0.0 - 29.0 mg/L LAB CHEMISTRY METHOD 03/12/2025 5:44 PM EDT [facility] Microalb/Crea t Ratio 25 <30 mg/g creat LAB CHEMISTRY METHOD 03/12/2025 5:44 PM EDT [facility] Urine Urine specimen obtained by clean catch procedure / Unknown Non-blood Collection / Unknown 03/12/2025 3:24 PM EDT 03/12/2025 3:24 PM EDT Vahid Kemp MD LAB URINE ORDERABLES Final Resul t [facility] [address] [place] [address], [place] [phone] * COLONOSCOPY Anesthesia - [facility]; [facility] ENDOSCOPY (11/17/2024 4:06 PM EST) Anatomical [...] by PCP. Narrative 11/17/2024 4:07 PM EST [facility] GI Patient Name: Les Cruz Procedure [...] verified by the physician, the nurse, the manager of quality and the electrical power station technician in the pre-procedure area in the [...] malignant neoplasm of colon CPT copyright 2020 [employer]. All rights reserved. The codes documented in this report are preliminary and upon casket upholsterer review may be revised to meet current compliance requirements. Maria Elena Cardoso MD 11/17/2024 4:07:55 PM This report has been signed electronically.Maria Elena Cardoso MD Number of Addenda: 0 Note Initiated On: 11/17/2024 3:52 PM Scope In: 3:58:32 PM Scope Out: 4:04:58 PM Endoscopy Department at [facility] - [address] [place] [id number] Procedure Note Maria Elena Cardoso MD - 11/17/2024 [facility] GI Patient Name: Les Cruz Procedure Date: 11/17/2024 3:52 PM Date of : 1975 Age: 49 Gender: Female Note Status: Finalized Attending MD: Maria Elena Cardoso MD, Procedure Date No Time: 11/17/2024 Procedure: Colonoscopy Indications: Screening for colorectal malignant neoplasm Providers: Maria Elena Cardoso MD Referring MD: Lahsawn alvarez MD Medicines: Monitored Anesthesia Care Complications: [...] the physician, the nurse, theanesthetist and the electrical power station technician in the pre-procedure area in the [...] for malignantneoplasm of colon CPT copyright 2020 [employer]. All rights reserved. The codes documented in this report are preliminary and upon casket upholsterer reviewmay be revised to meet current compliance requirements. Maria Elena Cardoso MD 11/17/2024 4:07:55 PM This report has been signed electronically.Maria Elena Cardoso MD Number of Addenda: 0 Note Initiated On: 11/17/2024 3:52 PM Scope In: 3:58:32 PM Scope Out: 4:04:58 PM Endoscopy Department at [facility] - [address] [place] [phone] IMPRESSION: - Preparation of the colon was poor. - Stool in the entire examined colon. - No specimens collected. Recommendation: - Discharge patient to home. - This is the second attemped colonoscopy aborteddue to poor bowel prep. I suggest FIT test, plus barium enema to be ordered by PCP. Result [facility] Maria Elena Cardoso MD GI~PROCEDURE ORDERABLES Fin al Result * Depression Screening (03/05/2024) [facility] Depression Screening abstracted Result [facility] Historical Provider HEALTH MAINTENANCE Final Result * Diabetes Foot Exam (03/05/2024) [facility] Diabetes: Annual Foot Exam abstracted Result [facility] Provider HEALTH MAINTENANCE Final Result * HIV Screening (11/07/2019) [facility] HIV Screening abstracted Result [facility] Provider HEALTH MAINTENANCE Final Result * Hepatitis C Screening (11/07/2019) [facility] Hepatitis C Screening abstracted Result [facility] Provider HEALTH MAINTENANCE Final Result from Last 3 Months or Most Recently Relevant to Health Maintenance Insurance [facility] Member Subscriber Plan / Payer (Ef fective 2022-Present) Name:LES CRUZ Relation to Subscriber:Self Name:Les Cruz Payer ID:[id number] Group ID:[id number] Type:Not on file Address: [address] [phone] Advance Directives Documents on File Type Date Recorded 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 Expl 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 Health Care Decision (hx) 03/12/2022 ADVANCE DIRECTIVE Health Care Decision (hx) 03/12/2022 ADVANCE DIRECTIVE Health Care Decision (hx) 03/12/2022 ADVANCE DIRECTIVE Health Care Decision (hx) 03/12/2022 ADVANCE DIRECTIVE Health Care Decision (hx) 03/12/2022 ADVANCE DIRECTIVE Health Care Decision (hx) 03/12/2022 ADVANCE DIRECTIVE Health Care Decision (hx) 03/12/2022 ADVANCE DIRECTIVE Health Care Decision (hx) 03/12/2022 ADVANCE DIRECTIVE Health Care Decision (hx) 03/12/2022 ADVANCE DIRECTIVE Health Care Decision (hx) 03/12/2022 ADVANCE DIRECTIVE Health Care Decision (hx) 03/12/2022 ADVANCE DIRECTIVE Health Care Decision (hx) 03/12/2022 ADVANCE DIRECTIVE Health Care Decision (hx) 03/12/2022 ADVANCE DIRECTIVE Health Care Decision (hx) 03/12/2022 ADVANCE DIRECTIVE Health Care Decision (hx) 03/12/2022 ADVANCE DIRECTIVE Health Care Decision (hx) 03/12/2022 ADVANCE DIRECTIVE Health Care Decision (hx) 03/12/2022 ADVANCE DIRECTIVE Health Care Decision (hx) 03/12/2022 ADVANCE DIRECTIVE Health Care Decision (hx) 03/12/2022 ADVANCE DIRECTIVE Health Care Decision (hx) 03/12/2022 ADVANCE DIRECTIVE Health Care Decision (hx) 03/12/2022 Oumou Cruz ADVANCE DIRECTIVE * Full Code - Default (Latest Code Status on File) Date Activated Date Inactivated Comments 08/15/2025 10:50 PM 08/18/2025 4:54 PM This is or sima is used when code status has not been discussed with the patient, or code status is otherwise unknown/unconfirmed To update the patient's code status, place a code status order. Do not modify or discontinue any currently active code status orders. Healthcare Agents on File Name Relationship Healthcare Agent [facility] Oumou Pagan [facility]ly [facility] Health Care Agent Deaterese Cruz Relative First [facility] re Agent Care Teams Customer Account Specialist Relationship Specialty Start Date End Date Lashawn Montesinos MD [address] [place] [phone] PCP - General Internal Medicine 06/06/22
--- OUTSIDE RECORDS SUMMARY | 2025-09-28 14:17 | XMS_ITS | Encounter Summary ---
Author Organization [facility], Address [address] [place] [address] Phone Care Team Providers Care Search Strategist Name Role Phone Lashawn Cloud MD Primary Care Provider + Reason for Visit * Reason Comments Med Refill Encounter Details Date Type Department Care Team (Late st Contact Info) Description 08/28/2020 Refill [facility] [address] [place] [phone] Navid Nolasco MD [address] [place], [place] [address] [phone] Social History Tobacco Use Types Packs/Day Years [...] on filedocumented in this encounter Care Teams Search Strategist Relationship Specialty Start Date [place] [phone] PCP - General 03/19/23 documented as of this encounter
== END 2025-09-28 11:42 | disposition home or self-care (01) ==
LOC: HO.HSM 11:12
PROVIDERS: PCP Internal Medicine; Visit Provider Registered Nurse
DX: G40.909 Epilepsy, unspecified, not intractable, without status epilepticus (principal); G43.909 Migraine, unspecified, not intractable, without status migrainosus; G44.40 Drug-induced headache, not elsewhere classified, not intractable
CPT/HCPCS: 99214

== ENCOUNTER → 2025-09-28 11:12 | Outpatient (BNVA) | payer OTHER, SELFPAY | PROVIDERS: PCP Internal Medicine; Visit Provider Registered Nurse | DX: G40.909 Epilepsy, unspecified, not intractable, without status epilepticus (principal); G43.909 Migraine, unspecified, not intractable, without status migrainosus; G44.40 Drug-induced headache, not elsewhere classified, not intractable; Z79.899 Other long term (current) drug therapy | CPT/HCPCS: 99212 ==